=== PATIENT | female | born 1990 | race Caucasian/White ===

== ENCOUNTER 2017-06-09 20:05 | Inpatient (IN) | payer OTHER, SELFPAY ==
[2017-06-09 20:44] VITALS: BMI 26.4
[2017-06-09] MEDS: Lactated Ringers 1,000 ML 50 ML IV (20:45)
[2017-06-09 21:08] LABS: Hematocrit 40.8 % (37-47); Hemoglobin 14.2 g/dl (12.0-15.0); Mean Corp Hgb Conc 34.8 g/gl (32-36); Mean Corpuscular Hgb 32.3 pg (27.0-32.0); Mean Corpuscular Volume 92.9 fL (81-99); Mean Platelet Vol. 10.6 fl (6.2-12.0); Platelet Count 252 K/mm3 (150-450); RBC Distribution Width CV 14.7 % (11.6-14.6); RBC Distribution Width SD 48.2 fl (35.1-43.9); Red Blood Count 4.39 M/mm3 (4.2-5.4); White Blood Count 8.6 K/mm3 (4.4-11.0)
[2017-06-09 21:09] LABS: Scan Indicated on CBC? Y/N NO
[2017-06-09] MEDS: 0.9% Saline Lock 10 ML Syringe IV (21:55)
--- NOTE | 2017-06-09 22:00 | PCM.PN.BLA ---
Progress Note LABOR PROGRESS NOTE Using Nitrous oxide at present. AVSS 100/59 EFM 120-s with avg variability Accels to 150-160s UCs irreg q 1-4 mins with some coupling and spacing noted CX per last RN check: /-2 A/P: 40 5/7 wk spont labor. Category I tracing Continue labor.
[2017-06-10] MEDS: Oxytocin 30 units/NS 500 ml 30 UNITS/500 ML IV.SOLN 334 UNITS IV (01:32)
[2017-06-10] MEDS: Oxytocin 30 units/NS 500 ml 30 UNITS/500 ML IV.SOLN 167 UNITS IV (02:04)
--- NOTE | 2017-06-10 02:40 | OP.PCM_ITS ---
Vaginal Delivery Maternal Presentation: Active Labor 40 5/7 wk labor Amniotic Membrane Rupture Type: Artificial Amniotic Fluid Description: Moderate meconium Final LIZZETH: 06/04/17 Gestational age: 40 Weeks and 6 Days [place] doctor who attended delivery (if requested by OB): Jaylyn Phillips Date of Procedure: 06/10/17 Pre-Operative Diagnosis: 40 6/7 wk Post-Operative Diagnosis: same Surgery/ Procedure Performed: Spontaneous Vaginal Delivery Type of Anesthesia: Epidural Description of Procedure: of a cleary male over midline episiotomy with extension. Head delivered ISELA. Nuchal cord x one reduced shoulders delivered easily. Baby vigorous and crying and to maternal abdomen. Delayed cord clamping . Cord clamped x two and cut. Dr. Phillips present for delivery d/t meconium stained fluid. Routine cord blood for typing obtained. Placenta delivered by spont expulsion, expression. 3V cord, normal appearing and intact with trailing membranes PP exam: 4th degree extension noted. and bilateral vaginal sidewall lacerations. Repaired under 1% lidocaine to hemostatic and intact in layers. -- Rectal mucosa repaired with 3-0 chromic. -- Anal spincter repaired with intermittent 2-0 chromic to reapproximate. -- Vaginal lacerations then repaired with 3-0 vicryl. EBL 450 cc Patient and infant tolerated delivery well. To recovery , stable condition. [employer] counts correct: 30 used. 7 suture / needles and syringe with attached needle to sharps container. Presentation: Vertex, ISELA Placental Delivery Description: Spontaneous, Expressed Placenta Disposition: [facility] Cord Vessel Description: 3 Vessels Nuchal Cord Compression: Without compression Cord Entanglement: Around neck x 1, loose Estimated Blood Loss: 450 Infant A gender: Male (1 minute): 8 (5 minute): 9 Episiotomy Description: Midline Laceration: Midline, Perineal Extension/lac, Vaginal Extension/lac, 4th Degree - Bilateral 2nd deg vaginal side wall tears also. Medications given after delivery: IV Pitocin Complications: None
--- NOTE | 2017-06-10 02:40 | PCM.DCVAG ---
Discharge Diet: No Restrictions Discharge Activity: May Shower, May Take a Tub Bath May resume sexual activity in: 4-6 weeks Additional Activity Instructions:: Nothing in the vagina for 4-6 weeks. You may return to work/school in 6 weeks. Additional Dressing/Incision Instructions:: You may take tylenol 1000 mg every 8 hrs as needed, and add EITHER two Aleve or three ibuprofen every 8 hr if needed for pain. Additional Instructions: If you experience any of the following, contact your healthcare provider. Bleeding that soaks a pad every hour for 2 hours Fever 100.4 or higher Unrelieved incision or abdominal pain Swelling, redness, discharge or bleeding from your incision or episiotomy site Your incision begins to separate Problems urinating (including inability to urinate or burning while urinating). Visual changes Severe headache Flu-like symptoms Pain or redness in one of both of your breasts Pain, warmth, tenderness or swelling in your legs, especially the calf area Frequent nausea and vomiting Symptoms of depression or anxiety If you experience any of the following, call 911 or go to the nearest Emergency Room. Chest pain Problems breathing Seizure activity Partial or complete paralysis of a body part, slurred speech, weakness or drooping of the face, or a sudden inability to walk or hold your balance Allergies/Adverse Reactions: Allergies No Known Allergies Allergy (Verified 06/09/17 20:37) Medications to take at Discharge Vit Calc,Iron,Folic [ Vitamins] 1 each PO DAILY 06/09/17 Docusate Sodium [Colace] 100 mg PO BID #30 cap 06/10/17 Polyethylene Glycol 3350 [Miralax] 17 gm PO DAILY #30 packet 06/10/17 Please Follow Up With: Virginia Booth MD - [phone] Primary Care Physician: Care Physician,No Primary [Primary Care Provider] - Proposed Discharge Date: 06/12/17
--- NOTE | 2017-06-10 02:44 | DCINST_ITS ---
Discharge Diet: No Restrictions Discharge Activity: May Shower, May Take a Tub Bath May resume sexual activity in: 4-6 weeks Additional Activity Instructions:: Nothing in the vagina for 4-6 weeks. You may return to work/school in 6 weeks. Additional Dressing/Incision Instructions:: You may take tylenol 1000 mg every 8 hrs as needed, and add EITHER two Aleve or three ibuprofen every 8 hr if needed for pain. Additional Instructions: If you experience any of the following, contact your healthcare provider. * Bleeding that soaks a pad every hour for 2 hours * Fever 100.4 or higher * Unrelieved incision or abdominal pain * Swelling, redness, discharge or bleeding from your incision or episiotomy site * Your incision begins to separate * Problems urinating (including inability to urinate or burning while urinating) . * Visual changes * Severe headache * Flu-like symptoms * Pain or redness in one of both of your breasts * Pain, warmth, tenderness or swelling in your legs, especially the calf area * Frequent nausea and vomiting * Symptoms of depression or anxiety If you experience any of the following, call 911 or go to the nearest Emergency Room. * Chest pain * Problems breathing * Seizure activity * Partial or complete paralysis of a body part, slurred speech, weakness or drooping of the face, or a sudden inability to walk or hold your balance * Allergies/Adverse Reactions: Allergies No Known Allergies Allergy (Verified 06/09/17 20:37) Medications to take at Discharge Vit Calc,Iron,Folic [ Vitamins] 1 each PO DAILY 06/09/17 Docusate Sodium [Colace] 100 mg PO BID #30 cap 06/10/17 Polyethylene Glycol 3350 [Miralax] 17 gm PO DAILY #30 packet 06/10/17 Please Follow Up With: Virginia Booth MD - [phone] Primary Care Physician: Care Physician,No Primary [Primary Care Provider] - Proposed Discharge Date: 06/12/17
--- NOTE | 2017-06-10 04:56 | NURSING ---
when getting pt up to bathroom for first time, dangled at side of bed for several minutes, pt became faint and passed out, RN assisted pt to lying position. staff assist called, pt came to with no interventions needed.
--- NOTE | 2017-06-10 07:58 | PCM.PN.OB ---
Subjective: Day of Delivery with 4th degree laceration Doing well. Has not taken any pain medication yet. Delivered with nitrous only, no epidural. lidocaine for repair. Breast feeding well. States ready to take tylenol. RN states that with attempting to dangle at bedside earlier in am, pt got dizzy/lighteded and nauseated. resolved with rest and CBC just being drawn this AM. Bleeding is moderate - Physical Exam General: Alert, Oriented x3, Cooperative, No apparent distress HEENT: Atraumatic Neck: Supple Abdomen: Soft - Fundus firm NT, inferior to umbilicus Neurological: Cranial nerves II-XII grossly intact Psych/Mental Status: Normal Affect Weight: 76.5 kg Body Mass Index (BMI) 26.4 Intake and Output for Last 24 Hours 06/08/17 06/09/17 06/10/17 23:59 23:59 23:59 Intake Total 980 / 980 334 / 334 Output Total 200 / 200 Balance 780 / 780 334 / 334 Laboratory Tests Past 24 Hrs 06/09/17 06/09/17 06/10/17 20:45 20:45 07:35 WBC 8.6 RBC 4.39 Hgb 14.2 Hct 40.8 MCV 92.9 MCH 32.3 H MCHC 34.8 RDW 14.7 H RDW Differential 48.2 H Plt Count 252 MPV 10.6 Blood Type A NEGATIVE Antibody Screen NEGATIVE Screen Pending Baby's Blood Type Pending Baby's INGA Pending Assessment/Plan Day of delivery. 4th degree laceration, repaired. Stable . Continue routine care. CBC this am.
[2017-06-10 08:00] VITALS: BP 122/74; PULSE 85; RESP 18; TEMP 36.8
--- NOTE | 2017-06-10 08:02 | PN.OBGYN_ITS ---
Subjective: Day of Delivery with 4th degree laceration Doing well. Has not taken any pain medication yet. Delivered with nitrous only , no epidural. lidocaine for repair. Breast feeding well. States ready to take tylenol. RN states that with attempting to dangle at bedside earlier in am, pt got dizzy/lighteded and nauseated. resolved with rest and CBC just being drawn this AM. Bleeding is moderate - Physical Exam General: Alert, Oriented x3, Cooperative, No apparent distress HEENT: Atraumatic Neck: Supple Abdomen: Soft - Fundus firm NT, inferior to umbilicus Neurological: Cranial nerves II-XII grossly intact Psych/Mental Status: Normal Affect Weight: 76.5 kg Body Mass Index (BMI) 26.4 Intake and Output for Last 24 Hours 06/08/17 06/09/17 06/10/17 23:59 23:59 23:59 Intake Total 980 / 980 334 / 334 Output Total 200 / 200 Balance 780 / 780 334 / 334 Laboratory Tests Past 24 Hrs 06/09/17 06/09/17 06/10/17 20:45 20:45 07:35 WBC 8.6 RBC 4.39 Hgb 14.2 Hct 40.8 MCV 92.9 MCH 32.3 H MCHC 34.8 RDW 14.7 H RDW Differential 48.2 H Plt Count 252 MPV 10.6 Blood Type A NEGATIVE Antibody Screen NEGATIVE Screen Pending Baby's Blood Type Pending Baby's INGA Pending Assessment/Plan Day of delivery. 4th degree laceration, repaired. Stable . Continue routine care. CBC this am.
--- NOTE | 2017-06-10 08:54 | NURSING ---
moderate edema noted of labia majora and minora. Ice reapplied and ivana care given. will start antiinflammatories after breakfast.
[2017-06-10] MEDS: Senna/Docusate Sodium 1 Tablet PO (10:18)
[2017-06-10] MEDS: Ibuprofen 600 MG Tablet PO ×2 (10:19→17:42)
[2017-06-10] MEDS: Polyethylene Glycol 3350 17 GM PACKET PO (10:21)
[2017-06-10] MEDS: Magnesium Hydroxide 30 ML UDC PO ×2 (12:40→21:54)
[2017-06-10 12:50] VITALS: BP 115/76; PULSE 96; RESP 18; TEMP 36.9
--- NOTE | 2017-06-10 12:51 | NURSING ---
labial edema slightly decreased. Ice packs maintained
[2017-06-10 15:34] VITALS: BP 116/79; PULSE 108; RESP 14; TEMP 37; O2SAT 99
[2017-06-10] MEDS: Acetaminophen 500 MG Tablet 1000 MG PO (17:42)
[2017-06-10 19:30] VITALS: BP 99/58; PULSE 82; RESP 18; TEMP 37; O2SAT 98
[2017-06-11 00:25] VITALS: BP 103/59; PULSE 72; RESP 16; TEMP 36.7; O2SAT 98
[2017-06-11 03:00] VITALS: BP 103/69; PULSE 80; RESP 16; TEMP 36.4; O2SAT 99
[2017-06-11 05:10] LABS: Hematocrit 26.1 % (37-47); Hemoglobin 8.7 g/dl (12.0-15.0); Mean Corp Hgb Conc 33.3 g/gl (32-36); Mean Corpuscular Hgb 32.1 pg (27.0-32.0); Mean Corpuscular Volume 96.3 fL (81-99); Platelet Count 181 K/mm3 (150-450); RBC Distribution Width CV 14.6 % (11.6-14.6); RBC Distribution Width SD 48.2 fl (35.1-43.9); Red Blood Count 2.71 M/mm3 (4.2-5.4); White Blood Count 8.6 K/mm3 (4.4-11.0)
[2017-06-11 05:14] LABS: Scan Indicated on CBC? Y/N NO
--- NOTE | 2017-06-11 07:48 | PCM.PN.OB ---
Subjective: She is sore, but doing well. No issues overnight. Denies further lightheadedness or dizziness. She is nursing. Objective: AVSS - Physical Exam General: Alert, Oriented x3, Cooperative, No apparent distress HEENT: Atraumatic, Normocephalic Lungs: Normal air movement Cardiovascular: Regular rate, Regular Rhythm Abdomen: Soft, Non Tender, Non-Distended, - - Fundus firm and nontender, perineum intact, lochia moderate Extremities: No edema, No Calf Tenderness Neurological: Neuro grossly intact Psych/Mental Status: Normal Affect, Appropriate, Alert and oriented to time, place, person, mood and affect Vital Signs Temp Pulse Resp BP Pulse Ox 97.5 F L 80 16 103/69 99 06/11/17 03:00 06/11/17 03:00 06/11/17 03:00 06/11/17 03:00 06/11/17 03:00 Oxygen Delivery Method Room Air Weight: 76.5 kg Body Mass Index (BMI) 26.4 Intake and Output for Last 24 Hours 06/09/17 06/10/17 06/11/17 23:59 23:59 23:59 Intake Total 980 / 980 334 / 334 Output Total 200 / 200 1700 / 1700 Balance 780 / 780 -1366 / -1366 Laboratory Tests Past 24 Hrs 06/10/17 06/11/17 07:35 04:30 WBC 8.6 RBC 2.71 L Hgb 8.7 L Hct 26.1 L MCV 96.3 MCH 32.1 H MCHC 33.3 RDW 14.6 RDW Differential 48.2 H Plt Count 181 MPV 10.0 Screen NEGATIVE Baby's Blood Type A POSITIVE Baby's INGA NEGATIVE Assessment/Plan 27yo PPD#2 s/p with 4th degree perineal laceration doing well. -Rh negative, infant Rh positive - s/p Rhogam -Routine care -
[2017-06-11 08:00] VITALS: BP 103/67; PULSE 78; RESP 20; TEMP 36.6; O2SAT 97
[2017-06-11] MEDS: Ibuprofen 600 MG Tablet PO ×2 (09:20→19:56)
[2017-06-11] MEDS: Magnesium Hydroxide 30 ML UDC PO ×2 (10:27→21:54)
[2017-06-11] MEDS: Polyethylene Glycol 3350 17 GM PACKET PO (10:27)
[2017-06-11 14:00] VITALS: BP 112/73; PULSE 103; TEMP 36.7; O2SAT 100
[2017-06-11 19:45] VITALS: BP 116/66; PULSE 99; RESP 16; TEMP 37.1; O2SAT 100
[2017-06-12 02:00] VITALS: BP 109/73; PULSE 72; RESP 18; TEMP 36.4; O2SAT 100
--- NOTE | 2017-06-12 07:33 | DCINST_ITS ---
Discharge Diet: No Restrictions Discharge Activity: May Shower, May Take a Tub Bath May resume sexual activity in: 6 weeks Additional Activity Instructions:: Nothing in the vagina for 4-6 weeks. You may return to work/school in 6 weeks. Suture Line Care: Avoid Pulling/Pushing Cleanse incision/area with: Soap & Water Additional Dressing/Incision Instructions:: You may take tylenol 1000 mg every 8 hrs as needed, and add EITHER two Aleve or three ibuprofen every 8 hr if needed for pain. Additional Instructions: If you experience any of the following, contact your healthcare provider. * Bleeding that soaks a pad every hour for 2 hours * Fever 100.4 or higher * Unrelieved incision or abdominal pain * Swelling, redness, discharge or bleeding from your incision or episiotomy site * Your incision begins to separate * Problems urinating (including inability to urinate or burning while urinating) . * Visual changes * Severe headache * Flu-like symptoms * Pain or redness in one of both of your breasts * Pain, warmth, tenderness or swelling in your legs, especially the calf area * Frequent nausea and vomiting * Symptoms of depression or anxiety If you experience any of the following, call 911 or go to the nearest Emergency Room. * Chest pain * Problems breathing * Seizure activity * Partial or complete paralysis of a body part, slurred speech, weakness or drooping of the face, or a sudden inability to walk or hold your balance Allergies/Adverse Reactions: Allergies No Known Allergies Allergy (Verified 06/09/17 20:37) Medications to take at Discharge Vit Calc,Iron,Folic [ Vitamins] 1 each PO DAILY 06/09/17 Docusate Sodium [Colace] 100 mg PO BID #30 cap 06/10/17 Polyethylene Glycol 3350 [Miralax] 17 gm PO DAILY #30 packet 06/10/17 Ferrous Sulfate 325 mg PO DAILY 30 Days #30 tab 06/11/17 The following prescriptions were given: Ferrous Sulfate 325 mg PO DAILY 30 Days #30 tab Polyethylene Glycol 3350 [Miralax] 17 gm PO DAILY #30 packet Docusate Sodium [Colace] 100 mg PO BID #30 cap Orders to be completed after discharge: Electric breast pump Time Frame: 1 Year, Location: None Selected Please Follow Up With: Virginia Booth MD When: 1 week Primary Care Physician: Care Physician,No Primary [Primary Care Provider] - Proposed Discharge Date: 06/12/17
--- NOTE | 2017-06-12 07:36 | DS.PCM_ITS ---
Discharge Date and Diagnosis - Problem List Patient Problems: Active and Suspected Problems Fourth degree laceration of perineum, delivered, current hospitalization (Acute) (spontaneous vaginal delivery) (Acute) Date of Admission: 06/09/17 Date of Discharge: 06/12/17 - Primary Discharge Diagnosis Active and Suspected Problems Fourth degree laceration of perineum, delivered, current hospitalization (Acute) (spontaneous vaginal delivery) (Acute) Hospital Course and Treatment Operations: None Procedures: None Summary of Care Provided: The patient is a 27 year old F admitted in active labor. She had an at 40 6 /7wga complicated by 4th degree perineal lacerations. Her course was unremarkable and she was . Her infant was 8lb 9oz. She received Rhogam . She was discharged to home on day #2. Discharge Diet: No Restrictions Discharge Activity: May Shower, May Take a Tub Bath May resume sexual activity in: 6 weeks Additional Activity Instructions:: Nothing in the vagina for 4-6 weeks. You may return to work/school in 6 weeks. Suture Line Care: Avoid Pulling/Pushing Cleanse incision/area with: Soap & Water Additional Dressing/Incision Instructions:: You may take tylenol 1000 mg every 8 hrs as needed, and add EITHER two Aleve or three ibuprofen every 8 hr if needed for pain. Home Medications: Medications to take at Discharge Vit Calc,Iron,Folic [ Vitamins] 1 each PO DAILY 06/09/17 Docusate Sodium [Colace] 100 mg PO BID #30 cap 06/10/17 Polyethylene Glycol 3350 [Miralax] 17 gm PO DAILY #30 packet 06/10/17 Ferrous Sulfate 325 mg PO DAILY 30 Days #30 tab 06/11/17 Following Prescrptions Were Given to Patient: Ferrous Sulfate 325 mg PO DAILY 30 Days #30 tab Polyethylene Glycol 3350 [Miralax] 17 gm PO DAILY #30 packet Docusate Sodium [Colace] 100 mg PO BID #30 cap Other Amb Orders: Electric breast pump Time Frame: 1 Year, Location: None Selected Primary Care Physician: Care Physician,No Primary [Primary Care Provider] - Please Follow Up With: Virginia Booth MD Meaningful Use Info Meaningful Use Diagnoses (Choose all that apply): None applicable
--- NOTE | 2017-06-12 07:43 | PCM.PN.OB ---
Patient Problems: Active and Suspected Problems Fourth degree laceration of perineum, delivered, current hospitalization (Acute) (spontaneous vaginal delivery) (Acute) Subjective: Relates stool was too soft due to stool softener and had difficulty making it to bathroom. Her pain is minimal. She feels well and continues nursing. Her milk has not yet come in. Her lochia is moderate. Objective: AVSS - Physical Exam General: Alert, Oriented x3, Cooperative, No apparent distress HEENT: Atraumatic, Normocephalic Lungs: Normal air movement Cardiovascular: Regular rate, Regular Rhythm Abdomen: Soft, Non Tender, Non-Distended, - - Fundus firm and nontender Extremities: No edema, No Calf Tenderness Neurological: Neuro grossly intact Psych/Mental Status: Normal Affect, Appropriate, Alert and oriented to time, place, person, mood and affect Vital Signs Temp Pulse Resp BP Pulse Ox 97.5 F L 72 18 109/73 100 06/12/17 02:00 06/12/17 02:00 06/12/17 02:00 06/12/17 02:00 06/12/17 02:00 Oxygen Delivery Method Room Air Weight: 76.5 kg Body Mass Index (BMI) 26.4 Intake and Output for Last 24 Hours 06/10/17 06/11/17 06/12/17 23:59 23:59 23:59 Intake Total 334 / 334 Output Total 1700 / 1700 Balance -1366 / -1366 Assessment/Plan Active and Suspected Problems Fourth degree laceration of perineum, delivered, current hospitalization (Acute) (spontaneous vaginal delivery) (Acute) 27yo PPD#2 s/p with 4th degree perineal laceration doing well. -Rh negative, Rh positive - s/p Rhogam -Routine care -
[2017-06-12 08:08] VITALS: BP 124/80; PULSE 88; RESP 16; TEMP 36.7; O2SAT 100
[2017-06-12] MEDS: Ibuprofen 600 MG Tablet PO (09:05)
[2017-06-12 14:23] VITALS: BP 120/80; PULSE 86; RESP 16; TEMP 36.8; O2SAT 99
== END 2017-06-12 15:00 | disposition home or self-care (01) | DRG 775 ==
PROVIDERS: Admitting Provider Obstetrics & Gynecology; Visit Provider Obstetrics & Gynecology
DX: O70.3 Fourth degree perineal laceration during delivery (principal); O77.0 Labor and delivery complicated by meconium in amniotic fluid; O69.81X0 Labor and delivery complicated by cord around neck, without compression, not applicable or unspecified; Z37.0 Single live birth; Z3A.40 40 weeks gestation of pregnancy
CPT/HCPCS: 59025; 59050; 85027; 85461; 86850; 86900; 90384; 99218; J7120; A4216; G0378; J2790

== ENCOUNTER → 2017-07-27 16:40 | Outpatient (CLI) | payer OTHER, SELFPAY ==
[2017-07-30 16:03] LABS: HPV Reflexed? NOT INDICATED
== END ==
PROVIDERS: Visit Provider Obstetrics & Gynecology
DX: Z12.4 Encounter for screening for malignant neoplasm of cervix (principal)
CPT/HCPCS: 88175; G0145

== ENCOUNTER → 2018-05-05 16:46 | Outpatient (CLI) | payer OTHER, SELFPAY ==
--- OUTSIDE RECORDS SUMMARY | 2018-07-01 02:53 | XMS RPT_ITS ---
:1990 Author Organization OHIP Support Name Relationship Address Phone SIMONA SOSA Unavailable [address] + [place] [address] SOSAMATTYSIMONA Unavailable [address] [place] [address] NOT GIVEN Unavailable SCHOOL Unavailable KATHRYN SOSA Unavailable [address] + [place] [address] [facility] Unavailable [address] [facility] [address] + [place] [address] MATTY SSOASHUA Unavailable [address] + [place] [address] SOSA SIMONA Unavailable [address] [place] [address] NOT GIVEN Unavailable SCHOOL Unavailable KATHRYN SOSAUA Unavailable [address] + [place] [address] SOSA, SIMONA Unavailable [address] [place] [address] NOT GIVEN Unavailable SCHOOL Unavailable KATHRYN SOSAUA Unavailable [address] + [place] [address] SOSA SIMONA Unavailable [address] [place] [address] NOT GIVEN Unavailable SCHOOL Unavailable MATTY SOSASHUA Unavailable [address] + [place] [address] SOSA SIMONA Unavailable [address] [place] [address] NOT GIVEN Unavailable SCHOOL Unavailable SOSA SIMONA Unavailable [address] + [place] [address] SOSA SIMONA Unavailable [address] [place] [address] NOT GIVEN Unavailable SCHOOL Unavailable SIMONA SOSA Unavailable [address] + [place] [address] SIMONA SOSA Unavailable [address] [place] [address] NOT GIVEN Unavailable SCHOOL Unavailable SIMONA SOSA Unavailable [address] + [place] [address] SIMONA SOSA Unavailable [address] [place] [address] NOT GIVEN Unavailable SCHOOL Unavailable KATHRYN SOSA Unavailable [address] + [place] [address] [facility] Unavailable [address] + [place] [address] KATHRYN SOSA Unavailable [address] + [place] [address] [facility] Unavailable [address] + [place] [address] KATHRYN SOSA Unavailable [address] + [place] [address] [facility] Unavailable [address] + [place] [address] Care Team Providers Name Role Phone NO, DOCTOR ON Consulting Unavailable KEITH MARIA Primary Care Unavailable KEITH MARIA Attending Unavailable KEITH MARIA Admitting Unavailable FOOTE, PANCHO Admitting Unavailable FOOTE, PANCHO Attending Unavailable FOOTE, PANCHO Primary Care Unavailable NO, DOCTOR ON Consulting Unavailable FOOTE, PANCHO Admitting Unavailable FOOTE, PANCHO Attending Unavailable NO, DOCTOR ON Referring Unavailable FOOTE, PANCHO Primary Care Unavailable NO, DOCTOR ON Consulting Unavailable FOOTE, PANCHO Admitting Unavailable FOOTE, PANCHO Attending Unavailable FOOTE, PANCHO Primary Care Unavailable NO, DOCTOR ON Consulting Unavailable SOSA, KEVIN T Consulting Unavailable SOSA, KEVIN T Admitting Unavailable SOSA, KEVIN T Attending Unavailable SOSA, KEVIN T Primary Care Unavailable PROVIDER, UNKNOWN Consulting Unavailable PROVIDER, UNKNOWN Consulting Unavailable PROVIDER, UNKNOWN Consulting Unavailable SOSA, KEVIN T Admitting Unavailable SOSA, KEVIN T Attending Unavailable SOSA, KEVNI T Primary Care Unavailable SOSA, KEVIN T Consulting Unavailable PROVIDER, UNKNOWN Consulting Unavailable PROVIDER, UNKNOWN Consulting Unavailable PROVIDER, UNKNOWN Consulting Unavailable SOSA, KEVIN T Admitting Unavailable SOSA, KEVIN T Attending Unavailable SOSA, KEVIN T Primary Care Unavailable SOSA, KEVIN T Consulting Unavailable PROVIDER, UNKNOWN Consulting Unavailable PROVIDER, UNKNOWN Consulting Unavailable PROVIDER, UNKNOWN Consulting Unavailable DANIELLE CARMONAER Admitting Unavailable WARMARYANN, DANIELLEER Attending Unavailable WARTMANN, CHRISTOPHER Primary Care Unavailable SOSA, KEVIN T Consulting Unavailable PROVIDER, UNKNOWN Consulting Unavailable PROVIDER, UNKNOWN Consulting Unavailable PROVIDER, UNKNOWN Consulting Unavailable Leobardo, Summer Admitting Unavailable Jules-Antonio, Summer Attending Unavailable Primay Care Physicia, No Primary Care Unavailable Benekos Agatha Admitting Unavailable Agatha Caro Attending Unavailable Primay Care Physicia, No Primary Care Unavailable Jules-Antonio, Summer Attending Unavailable Primay Care Physicia, No Primary Care Unavailable Danielle Carmonae Attending Unavailable Arthur Carmona Referring Unavailable Primay Care Physicia, No Primary Care Unavailable PROBLEMS PROBLEMS DATE TYPE CONDITION / CODE ATTENDING STATUS SOURCE 07/27/2017 Unknown Z12.4 - Encounter Owen Booth for screening for [facility] neoplasm of Repository cervix / Z12.4(ICD-10) 06/12/2017 Unknown O70.3 - Fourth Agatha Caro Active [place] degree perineal Community laceration during Hospital delivery / Repository O70.3(ICD-10) 06/12/2017 Unknown D64.9 - Anemia, Agatha Caro Active [place] unspecified / Community D64.9(ICD-10) Hospital Repository PROCEDURES PROCEDURES No Procedure Records FoundRESULTS RESULTS CBC Collected: 05/22/2018 Status: F Source: LUIGI ABARCA 9:22 AM [facility] REPOSITORY TYPE CODE TESTS RESULT OUT OF RANGE REFERENCE UNITS LAB CBC(LOINC) CBC Result Comment: CBC-COMPLETE BLOOD COUNT LAB WBC(LOINC) 4.5 - 10.8 x 10EE3/UL WBC Low 3.8 LAB RBC(LOINC) 4.10 - x 10EE6/UL 5.30 RBC 4.91 LAB HEMOGLOBIN(LOINC) 12.0 - g/dl 16.0 HEMOGLOBIN 15.2 LAB HEMATOCRIT(LOINC) 34.0 - % 46.0 HEMATOCRIT 44.0 LAB MCV(LOINC) 80 - 99 fl MCV 90 LAB MCH(LOINC) 27 - 33 pg MCH 31 LAB MCHC(LOINC) 32 - 36 X10 3 MCHC 35 LAB RDW/CV(LOINC) 12.0 - % 15.6 RDW/CV 13.7 LAB PLATELET(LOINC) 150 - 450 x10EE3/UL PLATELET 219 LAB MPV(LOINC) 6.6 - 10.5 fl MPV 8.9 Result Comment: AUTOMATED DIFFERENTIAL LAB NEUT %(LOINC) 46.0 - 76.0 % NEUT % 57.0 LAB LYMPH %(LOINC) 20.0 - 45.0 % LYMPH % 29.8 LAB MONOS %(LOINC) 0.0 - 10.0 % MONOS % 9.7 LAB EO %(LOINC) 0.0 - 7.0 % EO % 2.6 LAB BASO %(LOINC) 0.0 - 2.0 % BASO % 0.9 LAB Lymph #(LOINC) 0.80 - 2.80 x10EE3/U L Lymph # 1.10 LAB Neut #(LOINC) 1.50 - 7.10 x10EE3/U L Neut # 2.20 LAB Vermilion #(LOINC) 0.20 - 1.00 x10EE3/U L Vermilion # 0.40 LAB EO #(LOINC) 0.00 - 0.50 x10EE3/U L EO # 0.10 LAB Baso #(LOINC) 0.00 - 0.10 x10EE3/U L Baso # 0.00 LAB MANUAL DIFF(LOINC) MANUAL DIFF N/A LAB MORPHOLOGY(LOINC ) MORPHOLOGY N/A Result Comment: {CD] Performed By: #### [id number] #### [facility],[address] [place] [address] BMP WITH EGFR Collected: 05/22/2018 Status: F Source: [facility] 9:22 AM [facility] REPOSITORY TYPE CODE TESTS RESULT OUT OF RANGE REFERENCE UNITS LAB BMP with eGFR(LOINC) BMP with eGFR Result Comment: BASIC METABOLIC PANEL LAB SODIUM(LOINC) 136 - 145 mmol/l SODIUM 141 LAB POTASSIUM(LOINC) 3.5 - 5.1 mmol/L POTASSIUM 4.2 LAB CHLORIDE(LOINC) 98 - 107 mmol/L CHLORIDE 106 LAB CO2(LOINC) 21.0 - mmol/L 31.0 CO2 28.8 LAB GLUCOSE(LOINC) 74 - 106 mg/dl GLUCOSE Low 59 LAB BUN(LOINC) 6 - 20 mg/dl BUN 11 LAB CREATININE(LOINC) 0.6 - 1.2 mg/dl CREATININE 0.6 LAB CALCIUM(LOINC) 8.6 - mg/dl 10.2 CALCIUM 9.1 LAB ANION GAP(LOINC) 10 - 20 mmol/L ANION GAP 10 LAB AGE(LOINC) years AGE 28 LAB eGFR(LOINC) 60 - 999 ML/MINUTE eGFR >60 LAB eGFR(AA)(LOINC) 60 - 999 ML/MINUTE eGFR(AA) >60 Result Comment: ACCORDING TO THE NATIONAL KIDNEY DISEASE EDUCATION PROGRAM(NKDE), A NORMAL eGFR IS A VALUE GREATER THAN OR EQUAL TO 60 ML/MIN/1.73 SQ METERS. CHRONIC KIDNEY DISEASE: <60mL/MIN/1.73 SQ METERS KIDNEY FAILURE: <15mL/MIN/1.73 SQ METERS THIS TEST SHOULD ONLY BE USED FOR PATIENTS 18 YEARS OF AGE AND OLDER. Performed By: #### [id number] #### [facility],[address] [place] [address] Observed: 05/05/2018 Status: F Source: [place] CULTURE, THROAT 2:55 PM [facility] REPOSITORY Culture, Throat Mixed normal throat nazario. No Haemophilus, Streptococcus pneumoniae, beta-hemolytic Streptococcus or Staphylococcus aureus isolated. Performed By: #### [id number] #### [facility] [address] [place] [address], [address] [address] CHEST (PE PROTOCOL) Observed: 04/26/2018 Status: F Source: LUIGI TEVIN 9:12 AM [place] [address] Patient: JOSSELIN SOSA Phone#: : 1990 Age: 28 Gender: F Pt. Type: Out Account: [id number] Location: Ordering: KEVIN SOSA Exam Date: 04/26/2018/8:48 Family Phys: Charge Code: [id number] Physician: [place] Order #: [id number] DLP Dose#: PROCEDURE: CT CHEST WITH CONTRAST FOR PE COMPARISON: None. INDICATIONS: Shortness of breath TECHNIQUE: After obtaining the patient's consent, CT images were obtained with non-ionic intravenous contrast material. Multi-planar images were created to optimize visualization of vascular anatomy with MPR/MIPS and 3D imaging. All CT scans at this facility use dose modulation, iterative reconstruction, and/or weight based dosing when appropriate to reduce radiation dose to as low as reasonably achievable. IV CONTRAST: Omnipaque 350,59ml TOTAL DOSE: 2.5 CTDIvol(mGy) FINDINGS: VASCULATURE: Normal. No visible pulmonary arterial thrombus or attenuation. AORTA: Normal. No aneurysm or dissection. LUNGS: Normal. No visible pulmonary disease. KATHY: Normal. No mass or adenopathy. MEDIASTINUM: Normal. No mass or adenopathy. CARDIAC: Normal. No enlargement, pericardial thickening, or significant calcification. PLEURA: Normal. No mass or effusion. CHEST WALL: Normal. No mass or axillary adenopathy. LIMITED ABDOMEN: There is an accessory right renal artery. BONES: Normal. No bony lesion or fracture. OTHER: Small nodules are seen throughout the thyroid gland. CONCLUSION: 1. No pulmonary embolism. No pulmonary parenchymal abnormality. Continued Report - Page 2 of 2 Patient: JOSSELIN SOSA Phone#: : 1990 Age: 28 Gender: F Pt. Type: Out Account: [id number] Location: Ordering: KEVIN SOSA Exam Date: 04/26/2018/8:48 Family Phys: Charge Code: [id number] Physician: [place] Order #: [id number] DLP Dose#: 2. Small thyroid nodules. Dictated by: Madina Mckee MD on 04/26/2018 at 9:47 Approved by: Madina Mckee MD on 04/26/2018 at 12:49 CT KUB (KIDNEY STONE Observed: 04/21/2018 Status: F Source: [facility] PROTOCOL) 3:16 PM [place] [address] Patient: JOSSELIN SOSA Phone#: : 1990 Age: 28 Gender: F Pt. Type: Out Account: [id number] Location: Ordering: KEVIN SOSA Exam Date: 04/21/2018/15:05 Family Phys: Charge Code: [id number] Physician: [place] Order #: [id number] DLP Dose#: 6.1 mGy PROCEDURE: CT ABDOMEN AND PELVIS WITHOUT CONTRAST COMPARISON: None. INDICATIONS: Flank pain. TECHNIQUE: After obtaining the patient's consent, CT images of the abdomen and pelvis were created without non-ionic intravenous contrast material. All CT scans at this facility use dose modulation, iterative reconstruction, and/or weight based dosing when appropriate to reduce radiation dose to as low as reasonably achievable. IV CONTRAST: No IV contrast used,0ml TOTAL DOSE: 6.1 CTDIvol(mGy) FINDINGS: KIDNEYS: Normal. No mass, obstruction, or calcification. ADRENALS: Normal. No mass or enlargement. URINARY BLADDER: Normal. No visible focal wall thickening, lesion, or calculus. LIVER: Normal. No enlargement, atrophy, abnormal density, or significant focal lesion. BILIARY: The gallbladder is absent. Surgical sutures present the gallbladder fossa. PANCREAS: Normal. No lesion, fluid collection, ductal dilatation, or atrophy. SPLEEN: Normal. No enlargement or focal lesion. AORTA/VASCULAR: Normal. No aneurysm. RETROPERITONEUM: Normal. No mass or adenopathy. BOWEL/MESENTERY: There is moderate proximal stool retention. The stomach is distended. Correlate with recent meal. ABDOMINAL WALL: Normal. No mass or hernia. PELVIC NODES: Normal. No adenopathy. PELVIC ORGANS: Normal. No visible mass. Pelvic organs appropriate for patient age. Continued Report - Page 2 of 2 Patient: ARCELIA SOSABEKAY Wharton Phone#: : 1990 Age: 28 Gender: F Pt. Type: Out Account: [id number] Location: Ordering: KEVIN SOSA Exam Date: 04/21/2018/15:05 Family Phys: Charge Code: [id number] Physician: [place] Order #: [id number] DLP Dose#: 6.1 mGy BONES: The L5-S1 disc space is narrowed. There is no evidence of subluxation. Broad-based disc bulging is present at the L4-5 level. There is mild narrowing of the disc space. There is mild right foraminal narrowing LUNG BASES: Normal. No visible pulmonary or pleural disease. OTHER: Negative. CONCLUSION: 1. There is no evidence of acute abdominal abnormality. There is disc bulging at the L4-5 level. There is mild right foraminal narrowing. Dictated by: Aditi Mckeon MD on 04/21/2018 at 15:32 Approved by: Aditi Mckeon MD on 04/21/2018 at 15:32 CHEST 2 VIEWS Observed: 04/09/2018 Status: F Source: LUIGI ABARCA 4:41 PM [place] [address] Patient: JOSSELIN SOSA. Phone#: : 1990 Age: 27 Gender: F Pt. Type: Out Account: [id number] Location: Ordering: FAZAL SOSA Exam Date: 04/09/2018/16:24 Family Phys: KEVIN SOSA Charge Code: [id number] Physician: UMANG AMAYA [place] Order #: [id number] DLP Dose#: PROCEDURE: X-RAY CHEST 2 VIEWS COMPARISON: None. INDICATIONS: Chest pain FINDINGS: LUNGS: Normal. No significant pulmonary parenchymal abnormalities. VASCULATURE: Normal. Unremarkable pulmonary vasculature. CARDIAC: Normal. No cardiac silhouette abnormality or cardiomegaly. MEDIASTINUM: Normal. No visible mass or adenopathy. PLEURA: Normal. No effusion or pleural thickening. BONES: Normal. No fracture or visible bony lesion. OTHER: Negative. CONCLUSION: No acute disease. Dictated by: Madina Mckee MD on 04/09/2018 at 16:54 Approved by: Madina Mckee MD on 04/09/2018 at 16:54 OPERATIVE PROCEDURES Observed: 03/04/2018 Status: F Source: LUIGI ABARCA 9:28 PM [facility] OPERATIVE REPORT NAME ACCOUNT SEX AGE ADMIT DISCHARGE PT MED. RECORD# NUMBER DATE DATE TYPE SHEILA [id number] F 27 02/17/18 02/17/18 2 JOSSELIN Cheek [id number] ROOM: [facility] DATE OF : 1990 DICTATING PHYSICIAN: Pancho Foote DATE OF SURGERY: February 17, 2018 SURGEON: Pancho Foote MD ROTARY SHE[employer] WORKER HELPER: ANESTHESIOLOGIST: Suzie Queen MD ANESTHETIC: PREOPERATIVE DIAGNOSIS: POSTOPERATIVE DIAGNOSIS: Abdominal pain, hiatal hernia, and alkaline bile reflux gastritis. OPERATION PERFORMED: EGD. COMPLICATIONS: ESTIMATED BLOOD LOSS: None. SPECIMENS: None. DISPOSITION: Stable, to recovery. INDICATIONS: Josselin Sosa is a pleasant 27-year-old lady who has had recurrent symptoms of upper abdominal discomfort and GE reflux. DESCRIPTION OF OPERATION: After informed consent, she was brought to endoscopy and placed on a padded gurney in the left lateral decubitus position with adequate padding of pressure points and time-out verification done. She was given sedation per Anesthesia with monitoring throughout. The oropharynx was topically anesthetized with 2% viscous lidocaine. A bite block was placed, and the Olympus [id number]-[id number] flexible endoscope was passed through the bite block and oropharynx into the esophagus. It was carefully advanced, protecting the mucosa. The proximal esophagus is unremarkable. There is no stricture. No worrisome findings. In the distal Page 1 of 2 JOSSELIN SOSA Operative Report esophagus, there is a small hiatal hernia with mild erythema but no ulceration. The GE junction was bypassed. The scope was retroflexed, and the fundus and GE junction viewed from below. Immediately upon entering the gastric body there was bilious material. There was generalized erythema consistent with gastritis. The GE junction appears unremarkable otherwise. The scope was advanced with irrigation and suctioning of the bilious material consistent with bile gastritis. The scope was advanced to the distal gastric body and into the second portion of the duodenum. The scope was then withdrawn with careful rotation, irrigation and suctioning in a back and forth movement as needed. The bulb, pylorus and antrum were carefully viewed. The rest of the gastric body was viewed. There were a few areas in the proximal gastric body which were just slightly irregular consistent with possible early gastric polyp formation, but there are no worrisome findings. No mass. No biopsies were taken. There was no ulcer seen. There is no active bleeding. No angiodysplasia. The scope was withdrawn with decompression with careful irrigation and suctioning, and no other worrisome findings were noted. The patient tolerated the procedure well and was sent to recovery in stable condition. The case will be discussed with the patient and spouse when she is more awake in the preoperative area. Dictated By: Pancho Foote MD 02/17/18 15:03 JOB #: [id number] Transcribed By: olegario 02/18/18 14:30 Electronically signed by: E-Sign Dr. Pancho Foote MD 03/04/18 21:27 Page 2 of 2 JOSSELIN SOSA Operative Report URINE Collected: 02/17/2018 Status: F Source: [facility] 12:42 PM [facility] ER TYPE CODE TESTS RESULT OUT OF REFERENCE UNITS RANGE LAB NEGATIVE UR(LOINC) UR NEGATIVE LAB INTERNAL QC(LOINC) INTERNAL QC PASS LAB EXTERNAL QC DONE?(LOINC) EXTERNAL QC YES DONE? Performed By: #### [id number] #### [facility],[address] [place] [address] OPERATIVE PROCEDURES Observed: 01/14/2018 Status: F Source: [facility] 11:17 AM [facility] OPERATIVE REPORT NAME ACCOUNT SEX AGE ADMIT DISCHARGE PT MED. RECORD# NUMBER DATE DATE TYPE SHEILA [id number] F 27 01/11/18 2 JOSSELIN Cheek [id number] ROOM: [facility] DATE OF : 1990 DICTATING PHYSICIAN: Pancho Foote DATE OF SURGERY: January 11, 2018 SURGEON: Pancho Foote MD [employer]ARY [employer] WORKER HELPER: ANA M Oates ANESTHESIOLOGIST: Suzie Queen MD ANESTHETIC: Local anesthesia 0.25% Sensorcaine with epinephrine, a total of 34 mL was used. PREOPERATIVE DIAGNOSIS: POSTOPERATIVE DIAGNOSES: Gallbladder sludge, adhesions, and bilirubin colic. OPERATION PERFORMED: Laparoscopic cholecystectomy, lysis of adhesions. COMPLICATIONS: ESTIMATED BLOOD LOSS: Less than 5 mL. FLUIDS GIVEN: 1600 mL of crystalloid. SPECIMEN: Gallbladder to pathology. DISPOSITION: Stable to recovery. INDICATIONS: Josselin Sosa is a pleasant 27-year-old lady with abdominal pain and a pattern consistent with biliary colic, and she was found to have gallbladder sludge. DESCRIPTION OF OPERATION: After informed consent and intravenous fluids, she was brought to the operating room, placed on the table in the supine position with adequate padding at pressure points. She was given anesthesia, prepped and draped in the usual fashion and timeout and verification done. The abdomen was carefully palpated, demarcated, and then an infraumbilical incision made under direct Page 1 of 2 JOSSELIN SOSA Operative Report visualization, and the Weck-Isaias trocar placed with good visualization and anchored with #1 Vicryl. The abdomen was gently insufflated, the patient rotated to the left and in reverse Trendelenburg. The epigastric and right-sided trocars were placed with good visualization. The trocar sites were all numbed up with 0.25% Sensorcaine with epinephrine. The tip of the gallbladder was viewed. This was elevated superiorly and laterally, and dissection carried down towards the triangle of Calot. There were multiple adhesions to the gallbladder from the omentum and around the bowel. These adhesions were lysed. Eventually the lysis was carried down toward the triangle of Calot, and the cystic artery and its branches were dissected free, doubly cross-clamped proximally with Weck polymer clips and divided distally with Harmonic scalpel. The cystic duct was skeletonized, and care taken not to tent the common bile duct. Cystic duct was doubly cross-clamped proximally and distally with Weck polymer clips and then sharply transected, and then this dissection was carried out laterally posterior to the gallbladder itself very gently traction and countertraction, and then the gallbladder was dissected away from the liver bed and oozing points coagulated. Prior to division of the last peritoneal reflection, the liver bed and the triangle of Calot were carefully inspected, and there was good hemostasis. The gallbladder was placed in an Endobag, removed through the epigastric opening, and the trocar repositioning. The liver bed and the triangle of Calot were again checked for good hemostasis. The patient was placed in Trendelenburg and rotated to the right and the irrigant suctioned and removed. Then the table was leveled. The liver bed again inspected for good hemostasis. The trocars were removed under direct visualization. The epigastric and infraumbilical fascial edges were nicely approximated with #1 Vicryl and the deeper layers also approximated with inverted interrupted #1 Vicryl, then the skin edges were brought in nice approximation with inverted interrupted 4-0 PDS through subcutaneous and subcuticular layers. Benzoin, Steri-Strips, and sterile dressings were placed. The patient tolerated the procedure well, was awakened, and will be sent to recovery room in good condition. The case will be discussed with the patient and spouse when she is more awake. Dictated By: Pancho Foote MD 01/11/18 16:12 JOB #: [id number] Transcribed By: am 01/11/18 16:27 Electronically signed by: E-Sign Dr. Pancho Foote MD 01/14/18 11:17 Page 2 of 2 JOSSELIN SOSA Operative Report URINE Collected: 01/11/2018 Status: F Source: [facility] 11:00 AM [facility] ER TYPE CODE TESTS RESULT OUT OF REFERENCE UNITS RANGE LAB NEGATIVE UR(LOINC) UR NEGATIVE LAB INTERNAL QC(LOINC) INTERNAL QC PASS LAB EXTERNAL QC DONE?(LOINC) EXTERNAL QC YES DONE? Performed By: #### [id number] #### [facility],[address] [place] [address] [place] HIDA SCAN Observed: 12/16/2017 Status: F Source: [facility] 11:00 [place] [address] Patient: JOSSELIN SOSA Phone#: : 1990 Age: 27 Gender: F Pt. Type: Out Account: [id number] Location: Ordering: PANCHO FOOTE Exam Date: 12/16/2017/7:42 Family Phys: NO DOCTOR Charge Code: [id number] Physician: [place] Order #: [id number] DLP Dose#: PROCEDURE: HIDA SCAN COMPARISON: None. INDICATIONS: RUQ pain TECHNIQUE: Informed consent was obtained. A routine radionuclide hepatobiliary scan was performed after intravenous injection of 8.4 mCi Tc Choletec with sequential acquisitions every 5 minutes for one hour. Then, a repeat hepatobiliary scan with gallbladder ejection fraction analysis was performed after a 30-minute intravenous infusion of 1.2 mcg cholecystokinin by calibrated pump. Biliary imaging was again performed with sequential imaging performed every 30 seconds for 30 minutes, followed by computer quantitative ejection fraction analysis. PHARMACEUTICAL(S): Tc-99m TMI derivative (see dose listed above). Cholecystokinin (Kinevac ) (see dose listed above). FINDINGS: BILIARY DUCTS: Normal radioisotopic biliary excretion. GALLBLADDER: Normal with no evidence of cystic duct obstruction. INTESTINE: Normal with no evidence of common biliary ductal obstruction. EJECTION FRACTION: 35 % at 30 minutes. (Normal EF > 35%). OTHER: Negative. CONCLUSION: 1. Ejection fraction is borderline normal at 35%. Patient did not experience clinical symptoms with administration of CCK. Dictated by: Aditi Mckeon MD on 12/16/2017 at 16:17 Approved by: Aditi Mckeon MD on 12/16/2017 at 16:17 RUQ (GB/PANCREAS) Observed: 12/16/2017 Status: F [facility]29 [place] [address] Patient: BOB SOSAZAEMMANUEL Cheek. Phone#: : 1990 Age: 27 Gender: F Pt. Type: Out Account: [id number] Location: Ordering: [facility] Exam Date: 12/16/2017/8:00 Family Phys: NO DOCTOR Charge Code: [id number] Physician: [place] Order #: [id number] DLP Dose#: PROCEDURE: RUQ (GB) ULTRASOUND COMPARISON: [facility], RUQ (GB), 04/30/2012, 9:22. INDICATIONS: Abdominal pain FINDINGS: LIVER: Normal. Normal size and echotexture. No significant masses. BILIARY: There is a small amount sludge layering in the gallbladder. The common bile duct measures 0.3 cm. The gallbladder wall measures 0.2 cm. PANCREAS: Limited visualization of the pancreas, visualized portions unremarkable RIGHT KIDNEY: Normal renal parenchymal echogenicity. No hydronephrosis. OTHER: Negative. CONCLUSION: 1. Small amount of gallbladder sludge. DICTATED BY: MADNIA MCKEE MD ON 12/16/2017 AT 8:39 APPROVED BY: MADINA MCKEE MD ON 12/16/2017 AT 8:39 OPERATIVE PROCEDURES Observed: 08/31/2017 Status: F Source: LUIGI TANNERSHEILA 8:13 AM [facility] OPERATIVE REPORT NAME ACCOUNT SEX AGE ADMIT DISCHARGE TYPE MED. RECORD# NUMBER DATE DATE SHEILA [id number] F 27 08/27/17 2 JOSSELIN Cheek [id number] ROOM: [facility] DATE OF : 1990 DICTATING PHYSICIAN : Keith Maria DATE OF SURGERY: August 27, 2017 SURGEON: Keith Maria MD ROTARY SHEAR WORKER HELPER: ANESTHESIOLOGIST: ANESTHETIC: MAC with 1% lidocaine and 0.5% Marcaine without epinephrine locally. PREOPERATIVE DIAGNOSIS: Left gluteal abscess. POSTOPERATIVE DIAGNOSIS: Left gluteal abscess. OPERATION PERFORMED: Incision and drainage. COMPLICATIONS: None. ESTIMATED BLOOD LOSS: 1 mL DRAINS: None. SPECIMEN: Wound culture. SIGNIFICANT FINDINGS: Scant amount of fluid upon incision of abscess cavity. All loculations were broken. DISPOSITION: Home. Diet: Regular. Activity: Regular. Medications: The patient was instructed to finish her course of Bactrim that she received from her PCP. In addition, she was given Percocet as needed for pain. It should be noted that the patient was instructed that it was okay to breastfeed while taking pain medication. SPECIAL INSTRUCTIONS: The patient was instructed to pack her wound with normal saline-dampened iodoform gauze b.i.d. Work: The patient was given an absence from work on August 28, 2017, and was written to go back to work on Thursday, August 31, 2017, with no restrictions. Follow-up: The patient will follow up with Dr. Maria as Page 1 of 2 JOSSELIN SOSA Operative Report needed. DESCRIPTION OF OPERATION: Following the initiation of MAC anesthesia, the patient was placed in the prone jackknife position. The patient's gluteal area was sterilely prepped and draped in the usual manner, and 1% lidocaine and 0.5% Marcaine without epinephrine were infused into the skin overlying the abscess. An 11 blade scalpel was then used to create approximately a 1 cm linear incision. Upon making the incision, there was a scant amount of purulent fluid that was expressed. This fluid was cultured. A finger was inserted through the defect, and all loculations were freed. The cavity was then irrigated with copious amounts of normal saline. The wound was then packed tightly with iodoform gauze. All needle, instrument and sponge counts were correct x2. The wound was appropriately dressed and bandaged. The patient was then awakened and returned to the supine position and taken to the PACU in good and stable condition. D: Keith Maria MD TD: 08/27/17 17:27 JOB #: [id number] Transcribed by: [email or web address] Electronically signed by: E-SIGN DR. MARIA 08/31/17 08:10 Page 2 of 2 SOSAJOSSELIN Operative Report HISTORY AND PHYSICAL Observed: 08/31/2017 Status: F Source: LUIGIALEJANDRO ABARCA EXAM 8:13 AM [facility] HISTORY & PHYSICAL NAME ACCOUNT SEX AGE ADMIT DISCHARGE TYPE MED. RECORD# NUMBER DATE DATE SHEILA [id number] F 27 08/27/17 Gogo JOSSELIN Cheek [id number] ROOM: [facility] DATE OF : [birth year] DICTATING PHYSICIAN: Keith Maria CHIEF COMPLAINT: Gluteal pain. HISTORY OF PRESENT ILLNESS: Mrs. Sosa is a 27-year-old female who presents with five to six days of increasing pain in her superior gluteal cleft. In addition, she has noticed a bulge that she suspects is an abscess. She has not witnessed any spontaneous drainage and denies any signs or symptoms of systemic illness. PAST MEDICAL HISTORY: None. PAST SURGICAL HISTORY: None. MEDICATIONS: None. ALLERGIES: No known drug allergies. SOCIAL HISTORY: She is . She recently had a baby. She does not drink, smoke or use illicit substances. REVIEW OF SYSTEMS: Ten-system review of systems is negative except as above. PHYSICAL EXAMINATION GENERAL APPEARANCE: In general, she is alert, oriented, appropriate and in no acute distress. VITAL SIGNS: She is afebrile. Vital signs are stable and within normal limits. LUNGS: Lungs are clear to auscultation bilaterally. HEART: Regular rate and rhythm. ABDOMEN: Soft, nontender and nondistended. On external examination of the gluteus, she is noted to have approximately a 2.5 cm area of erythema, induration, and central fluctuance that is exquisitely tender. No spontaneous drainage. The lesion is an appreciable significant distance from the anus. IMPRESSION: This is a 27-year-old female with a gluteal abscess versus a pilonidal cyst. Page 1 of 2 SHEILA JOSSELIN Adia History & Physical PLAN: We will give her a dose of vancomycin and then proceed to the operative arena for incision and drainage. The patient will then be instructed on wound care following the procedure. D: Keith Maria MD TD: 08/27/17 16:31 JOB #: [id number] Transcribed by: olegario Electronically signed by: MERISSA MARIA 08/31/17 08:10 Update to H&P: [ ] No changes: I have examined the patient and reviewed the H&P and there are no changes. [ ] As previously dictated with the following changes: PHYSICIAN SIGNATURE: TIME: DATE: Page 2 of 2 JOSSELIN SOSA History & Physical Observed: 08/27/2017 Status: F Source: LUIGI ABARCA GRAM STAIN STAT 4:33 PM [facility] REPOSITORY GRAM STAIN STAT GRAM STAIN SOURCE _L_GLUTEAL_ABSCE_ 08/27/17.1716.JLN. AMOUNT DESCRIPTION _NO_ORGANSIMS_SEEN 08/27/17.1716.JLN. CALLED TO/BY DEB/LOU [id number] Performed By: #### [id number] #### [facility] [place] [address] 45169 Observed: 08/27/2017 Status: F Source: LUIGI ABARCA GRAM STAIN STAT 4:33 [facility] GRAM STAIN STAT GRAM STAIN SOURCE _L_GLUTEAL_ABSCE_ 08/27/17.1717.LOU. AMOUNT DESCRIPTION _NO_ORGANISMS_SEEN 08/27/17.1717.LOU. CALLED TO/BY DEB/LOU [id number] Performed By: #### [id number] #### [facility],[address] [place] [address] 23825 Observed: 08/27/2017 Status: F Source: LUIGI ABARCA CULTURE BODY FLUID 4:33 PM [facility] REPOSITORY CULTURE BODY FLUID _BODY FLUID CULTURE_ M I C R O B I O L O G Y R E P O R T FINAL Antimicrobial Susceptibility and Organism Identification Report Specimen Number : [id number] Requested : 08/27/17 Specimen Source : BODY FLUID Collected : 08/27/17 16:33 [facility] : AMBULATORY Received : 08/27/17 16:33 Requesting Physician : yenny mahmood Patient/Specimen Tests and Comments Specimen Comments FINAL REPORT: SCANT GROWTH COAGULASE NEGATIVE STAPH MIXED NAZARIO NO PATHOGENS PRESENT Source - Left Gluteal Abscess Tech : Source : BODY FLUID ID # : [id number] FINAL Report Date : / / : Collected : 08/27/17 16:33 08/30/17.MDS. 08/29/17.MDS. 08/30/17.MDS.COMPLETE Performed By: #### [id number] #### [facility],[address] [place] [address] Observed: 08/27/2017 Status: F Source: [facility] CULTURE BODY FLUID 4:33 [facility] REPOSITORY CULTURE BODY FLUID _BODY FLUID CULTURE_ M I C R O B I O L O G Y R E P O R T FINAL Antimicrobial Susceptibility and Organism Identification Report Specimen Number : [id number] Requested : 08/27/17 Specimen Source : BODY FLUID Collected : 08/27/17 16:33 [facility] : AMBULATORY Received : 08/27/17 16:33 Requesting Physician : yenny mahmood Patient/Specimen Tests and Comments Specimen Comments FINAL REPORT: SCANT GROWTH COAGULASE NEGATIVE STAPH MIXED NAZARIO NO PATHOGENS PRESENT Source - Left Gluteal Abcess Tech : Source : BODY FLUID ID # : [id number] FINAL Report Date : / / : Collected : 08/27/17 16:33 08/30/17.MDS. 08/29/1755.MDS. 08/30/17.MDS.COMPLETE Performed By: #### [id number] #### [facility],[address] [place] [address] HEMOGLOBIN Collected: 08/27/2017 Status: F Source: [facility] 3:49 PM [facility] REPOSITORY TYPE CODE TESTS RESULT OUT OF REFERENCE UNITS RANGE LAB HEMOGLOBIN 12.0 - 16.0 g/dl (LOINC) HEMOGLOBIN 15.7 Result Comment: {HH] Performed By: #### [id number] #### [facility],[address] [place] [address] URINE Collected: 08/27/2017 Status: F Source: [facility] 3:13 PM [facility] REPOSITORY TYPE CODE TESTS RESULT OUT OF REFERENCE UNITS RANGE LAB NEGATIVE UR(LOINC) UR NEGATIVE LAB INTERNAL QC(LOINC) INTERNAL QC PASS LAB EXTERNAL QC DONE?(LOINC) EXTERNAL QC YES DONE? Performed By: #### [id number] #### [facility],[address] [place], [place] [address] PROGRESS Observed: 08/23/2017 Status: COMPLETED Source: [address] 3:13 PM [facility] REPOSITORY HNO ID: [id number] Author: Kymberly (Cynthia) Mirella Service: (none) Author Type: Nurse Practitioner Type: Progress Notes Filed: 08/23/2017 3:25 PM Note Text: Subjective HPI HPI Josselin Sosa is a 27 year old female who presents today for CC of lump at top of tailbone. This started over the past 24 hours. She is also having mild discomfort. Symptoms are worsened by touch She has tried no treatment or medications Risk factors none knwon PMH not significant BP 118/68 Pulse 76 Temp 36.9 ?C (98.5 ?F) (Tympanic) Resp 16 Wt 65.3 kg (144 lb) ALLERGIES No Known Allergies There is no problem list on file for this patient. No family history on file. Social History Marital status: Spouse name: Years of education: Number of children: Social History Main Topics Smoking status: Never Smoker Smokeless status: Never Used Review of Systems Constitutional: Negative for chills, fever and malaise/fatigue. Genitourinary: Negative for dysuria. Musculoskeletal: Negative for joint pain and myalgias. Skin: Negative for rash. Lump on skin above tailbone Painful Neurological: Negative for headaches. Objective Physical Exam Constitutional: She is oriented to person, place, and time and well-developed, well-nourished, and in no distress. No distress. HENT: Head: Normocephalic and atraumatic. Eyes: Conjunctivae and EOM are normal. Pupils are equal, round, and reactive to light. Neck: Normal range of motion. Neck supple. Pulmonary/Chest: Effort normal. Neurological: She is alert and oriented to person, place, and time. Skin: Skin is warm and dry. Psychiatric: Affect normal. Nursing note and vitals reviewed. ASSESSMENT/PLAN: 1. Nodule of buttock - ICD9: 782.2, ICD10: R22.2 Appears to be infected No purulent drainage -Tylenol or Ibuprofen for discomfort -Observe area for any worsening signs of infection: redness, warmth, foul odor, drainage or increase in discomfort or size, need to go to ER for further treatment. -Call your primary care physician's office for a follow up appointment if no improvement. - CEPHALEXIN 500 MG CAPSULE Diagnosis and treatment plan were discussed and questions were answered to the patient's satisfaction. Pt acknowledged understanding of concepts and follow up plan. Specific signs and symptoms that would indicate the need for higher level of care were discussed in detail warranting prompt ER evaluation. Kymberly Roth CNP CNOV Observed: 08/23/2017 Status: COMPLETED Source: [address] 2:45 PM [facility] REPOSITORY Office Visit (WSTR) JOSSELIN SOSA ([id number]) 1990 F Date Time Provider Department 08/23/17 2:45 PM KYMBERLY ROTH ([facility] During your visit today, we recorded the following information about you: Temperature Pulse Respiration Blood pressure 98.5 degrees 76/minute 16/minute 118/68 Weight 65.3 kg Kymberly Roth CNP 08/23/2017 3:24 PM Addendum ASSESSMENT/PLAN: 1. Nodule of buttock - ICD9: 782.2, ICD10: R22.2 Appears to be infected No purulent drainage -Tylenol or Ibuprofen for discomfort -Observe area for any worsening signs of infection: redness, warmth, foul odor, drainage or increase in discomfort or size, need to go to ER for further treatment. -Call your primary care physician's office for a follow up appointment if no improvement. - CEPHALEXIN 500 MG CAPSULE Kymberly Roth CNP 08/23/2017 3:25 PM Signed Subjective HPI HPI Josselin Sosa is a 27 year old female who presents today for CC of lump at top of tailbone. This started over the past 24 hours. She is also having mild discomfort. Symptoms are worsened by touch She has tried no treatment or medications Risk factors none knwon PMH not significant BP 118/68 Pulse 76 Temp 36.9 ?C (98.5 ?F) (Tympanic) Resp 16 Wt 65.3 kg (144 lb) ALLERGIES No Known Allergies There is no problem list on file for this patient. No family history on file. Social History Marital status: Spouse name: Years of education: Number of children: Social History Main Topics Smoking status: Never Smoker Smokeless status: Never Used Review of Systems Constitutional: Negative for chills, fever and malaise/fatigue. Genitourinary: Negative for dysuria. Musculoskeletal: Negative for joint pain and myalgias. Skin: Negative for rash. Lump on skin above tailbone Painful Neurological: Negative for headaches. Objective Physical Exam Constitutional: She is oriented to person, place, and time and well-developed, well-nourished, and in no distress. No distress. HENT: Head: Normocephalic and atraumatic. Eyes: Conjunctivae and EOM are normal. Pupils are equal, round, and reactive to light. Neck: Normal range of motion. Neck supple. Pulmonary/Chest: Effort normal. Neurological: She is alert and oriented to person, place, and time. Skin: Skin is warm and dry. Psychiatric: Affect normal. Nursing note and vitals reviewed. ASSESSMENT/PLAN: 1. Nodule of buttock - ICD9: 782.2, ICD10: R22.2 Appears to be infected No purulent drainage -Tylenol or Ibuprofen for discomfort -Observe area for any worsening signs of infection: redness, warmth, foul odor, drainage or increase in discomfort or size, need to go to ER for further treatment. -Call your primary care physician's office for a follow up appointment if no improvement. - CEPHALEXIN 500 MG CAPSULE Diagnosis and treatment plan were discussed and questions were answered to the patient's satisfaction. Pt acknowledged understanding of concepts and follow up plan. Specific signs and symptoms that would indicate the need for higher level of care were discussed in detail warranting prompt ER evaluation. Kymberly Roth CNP Referring Provider: SELF [200] Allergies As of Date: 08/23/2017 (No Known Allergies) Date Reviewed: 08/23/2017 Reviewed by: Jewell Wood Ma - Fully Assessed Reason for Visit: Pain [78] Cmt: near tailbone area x yesterday Primary Visit Diagnosis:Nodule of buttock [R22.2] Order(s):cephALEXin (KEFLEX) 500 mg capsuleTake 1 capsule by mouth twice daily for 10 days.Disp: 20 capsuleRfl: 0 Prescriptions as of 08/23/2017 Sig: CEPHALEXIN 500 MG CAPSULE Take 1 capsule by mouth twice* Problem List As Of Date: 08/23/2017 (None) Other instructions from your clinician: ASSESSMENT/PLAN: 1. Nodule of buttock - ICD9: 782.2, ICD10: R22.2 Appears to be infected No purulent drainage -Tylenol or Ibuprofen for discomfort -Observe area for any worsening signs of infection: redness, warmth, foul odor, drainage or increase in discomfort or size, need to go to ER for further treatment. -Call your primary care physician's office for a follow up appointment if no improvement. - CEPHALEXIN 500 MG CAPSULE Prescriptions ordered this encounter Disp Refills Start End CEPHALEXIN 500 MG CAPSULE 20 c* 0 08/23/2017 09/02/2017 Route: ORAL Sig: Take 1 capsule by mouth twice daily for 10 days. Encounter Status:Closed by KYMBERLY ROTH CNP on 08/23/17 PAP I-G W/RFX Collected: 07/27/2017 Status: F Source: PAOLO HRHPV-APTIMA 2:00 PM [facility] REPOSITORY Order Comment: CYTOLOGY INFORMATION: - CLINICAL INFORMATION: - DATE LMP/MENOPAUSE: - COLLECTION VIAL: Thin Prep Vial - SPANISH SPEAKING BABYSITTER SOURCE: CERVICAL/ENDOCERVICAL - COLLECTION TECHNIQUE: BRUSH/SPATULA Specimen Comment: [id number] Specimen Comment: No. of containers..01 ThinPrep Vial TYPE CODE TESTS RESULT OUT OF RANGE REFERENCE UNITS LAB L7400.0800 . Normal DIAGN Comment Result Comment: NEGATIVE FOR INTRAEPITHELIAL LESION AND MALIGNANCY. LAB L7400.0900 . Normal ADEQ Comment Result Comment: Satisfactory for evaluation. Endocervical and/or squamous metaplastic cells (endocervical component) are present. LAB L7400.1400 . Normal PERFORM Comment Result Comment: Sabiha Cárdenas, Lubricating Machine Tender (ASCP) LAB L7400.2575 . Normal TEST METHOD Comment Result Comment: This liquid based ThinPrep(R) pap test was screened with the use of an image guided system. LAB L7400.2600 . Normal . COMM LAB L7400.2700 . Normal PAPSMR Comment Result Comment: The Pap smear is a screening test designed to aid in the detection of premalignant and malignant conditions of the uterine cervix. It is not a diagnostic procedure and should not be used as the sole means of detecting cervical cancer. Both false-positive and false-negative reports do occur. LAB L7400.2800 . Normal HPV RFLX Comment Result Comment: The HPV DNA reflex criteria were not met with this specimen result therefore, no HPV testing was performed. Performed at: [facility] [id number] Account Collector: Dayana Rankin MD, Phone: [phone] Performed By: #### L7400.0353 #### [facility] (refer to report for specific site) refer to report for address and phone number DISCHARGE SUMMARY Observed: 06/12/2017 Status: F Source: EUFAULA 7:36 AM [facility] REPOSITORY [facility] Medical Records Department [address] [place] [address] Discharge Summary 06/12/17 0733 MR#: [id number] Acct: [id number] Name: JOSSELIN SOSA Rep #: [id number] : 1990 27 From: Virginia Alvarez MD PCP: Care Physician, No Primary Status: ADM IN Location: [place] [address]-1 Discharge Date and Diagnosis - Problem List Patient Problems: Active and Suspected Problems Fourth degree laceration of perineum, delivered, current hospitalization (Acute) (spontaneous vaginal delivery) (Acute) Date of Admission: 06/09/17 Date of Discharge: 06/12/17 - Primary Discharge Diagnosis Active and Suspected Problems Fourth degree laceration of perineum, delivered, current hospitalization (Acute) (spontaneous vaginal delivery) (Acute) Hospital Course and Treatment Operations: None Procedures: None Summary of Care Provided: The patient is a 27 year old F admitted in active labor. She had an at 40 6/7wga complicated by 4th degree perineal lacerations. Her course was unremarkable and she was . Her infant was 8lb 9oz. She received Rhogam . She was discharged to home on day #2. Discharge Diet: No Restrictions Discharge Activity: May Shower, May Take a Tub Bath May resume sexual activity in: 6 weeks Additional Activity Instructions:: Nothing in the vagina for 4-6 weeks. You may return to work/school in 6 weeks. Suture Line Care: Avoid Pulling/Pushing Cleanse incision/area with: Soap AND Water Additional Dressing/Incision Instructions:: You may take tylenol 1000 mg every 8 hrs as needed, and add EITHER two Aleve or three ibuprofen every 8 hr if needed for pain. Home Medications: Medications to take at Discharge Vit Calc,Iron,Folic [ Vitamins] 1 each PO DAILY 06/09/17 Docusate Sodium [Colace] 100 mg PO BID #30 cap 06/10/17 Polyethylene Glycol 3350 [Miralax] 17 gm PO DAILY #30 packet 06/10/17 Ferrous Sulfate 325 mg PO DAILY 30 Days #30 tab 06/11/17 Following Prescrptions Were Given to Patient: Ferrous Sulfate 325 mg PO DAILY 30 Days #30 tab Polyethylene Glycol 3350 [Miralax] 17 gm PO DAILY #30 packet Docusate Sodium [Colace] 100 mg PO BID #30 cap Other Amb Orders: Electric breast pump Time Frame: 1 Year, Location: None Selected Primary Care Physician: Care Physician,No Primary [Primary Care Provider] - Please Follow Up With: Virginia Booth MD Meaningful Use Info Meaningful Use Diagnoses (Choose all that apply): None applicable 06/12/17 0736 <Electronically signed by Virginia Booth MD> Date Virginia Booth MD Cosigner Signature (if applicable): Date CC: No Primary Care Physician; Virginia Booth MD Signed DISCHARGE INSTRUCTION Observed: 06/12/2017 Status: F Source: PAOLO 7:33 AM [facility] REPOSITORY [facility] Medical Records Department [address] [address] Instructions for Home/Discharge Instructions 06/12/17 0731 MR#: [id number] Acct: [id number] Name: JOSSELIN SOSA Rep #: [id number] : 1990 27 From: Virginia Alvarez MD PCP: Care Physician, No Primary Status: ADM IN Discharge Diet: No Restrictions Discharge Activity: May Shower, May Take a Tub Bath May resume sexual activity in: 6 weeks Additional Activity Instructions:: Nothing in the vagina for 4-6 weeks. You may return to work/school in 6 weeks. Suture Line Care: Avoid Pulling/Pushing Cleanse incision/area with: Soap AND Water Additional Dressing/Incision Instructions:: You may take tylenol 1000 mg every 8 hrs as needed, and add EITHER two Aleve or three ibuprofen every 8 hr if needed for pain. Additional Instructions: If you experience any of the following, contact your healthcare provider. * Bleeding that soaks a pad every hour for 2 hours * Fever 100.4 or higher * Unrelieved incision or abdominal pain * Swelling, redness, discharge or bleeding from your incision or episiotomy site * Your incision begins to separate * Problems urinating (including inability to urinate or burning while urinating). * Visual changes * Severe headache * Flu-like symptoms * Pain or redness in one of both of your breasts * Pain, warmth, tenderness or swelling in your legs, especially the calf area * Frequent nausea and vomiting * Symptoms of depression or anxiety If you experience any of the following, call 911 or go to the nearest Emergency Room. * Chest pain * Problems breathing * Seizure activity * Partial or complete paralysis of a body part, slurred speech, weakness or drooping of the face, or a sudden inability to walk or hold your balance Allergies/Adverse Reactions: Allergies No Known Allergies Allergy (Verified 06/09/17 20:37) Medications to take at Discharge Vit Calc,Iron,Folic [ Vitamins] 1 each PO DAILY 06/09/17 Docusate Sodium [Colace] 100 mg PO BID #30 cap 06/10/17 Polyethylene Glycol 3350 [Miralax] 17 gm PO DAILY #30 packet 06/10/17 Ferrous Sulfate 325 mg PO DAILY 30 Days #30 tab 06/11/17 The following prescriptions were given: Ferrous Sulfate 325 mg PO DAILY 30 Days #30 tab Polyethylene Glycol 3350 [Miralax] 17 gm PO DAILY #30 packet Docusate Sodium [Colace] 100 mg PO BID #30 cap Orders to be completed after discharge: Electric breast pump Time Frame: 1 Year, Location: None Selected Please Follow Up With: Virginia Booth MD When: 1 week Primary Care Physician: Care Physician,No Primary [Primary Care Provider] - Proposed Discharge Date: 06/12/17 06/12/17 0733 <Electronically signed by Virginia Booth MD> Date Virginia Booth MD CC: No Primary Care Physician CBC-COMPLETE BLOOD CNT Collected: 06/11/2017 Status: F Source: PAOLO NO DIFF 4:30 AM [facility] REPOSITORY Order Comment: Reason for Laboratory Test Day #1 TYPE CODE TESTS RESULT OUT OF RANGE REFERENCE UNITS LAB L100.1000 4.4-11.0 K/mm3 Normal WBC 8.6 LAB L100.1200 4.2-5.4 M/mm3 Low RBC 2.71 LAB L100.1300 12.0-15.0 g/dl Low HGB 8.7 LAB L100.1400 37-47 % Low HCT 26.1 LAB L100.1500 81-99 fL Normal MCV 96.3 LAB L100.1600 27.0-32.0 pg High MCH 32.1 LAB L100.1700 32-36 g/gl Normal MCHC 33.3 LAB L100.1810 11.6-14.6 % Normal RDW CV 14.6 LAB L100.1820 35.1-43.9 fl High RDW SD 48.2 LAB L100.1900 150-450 K/mm3 Normal PLT 181 LAB L100.2000 6.2-12.0 fl Normal MPV 10.0 Performed By: #### L100.0500 #### [facility] [address] [place], [address] RHOGAM Collected: 06/10/2017 Status: F Source: PA[place]O 1:44 PM [facility] REPOSITORY TYPE CODE TESTS RESULT OUT OF REFERENCE UNITS RANGE LAB U100.2500 [id number] TRANSFUSED PRODUCT: Rho(D) Immune Globulin RhoGam COUNT: 1 Performed By: #### U100.2500 #### Non-[facility] - refer to report for specific site RH NEGATIVE MOM Collected: 06/10/2017 Status: F Source: PAOLO WORKUP 7:35 AM [facility] REPOSITORY Order Comment: Baby's Full Name FLASH SOSA Baby's Bracelet # [id number] Baby's MR # [id number] TYPE CODE TESTS RESULT OUT OF RANGE REFERENCE UNITS LAB B101.0425 A Normal MOM'S ABO NEGATIVE RH LAB B101.0450 Normal MOM'S ABS NEGATIVE LAB B101.0500 NEGATIVE Normal NEGATIVE SCREEN LAB B101.0950 A Normal BABY'S POSITIVE ABO RH LAB B101.1000 NEGATIVE Normal BABY'S NEGATIVE INGA Performed By: #### B101.0300 #### [facility] [address] [place], [address] DISCHARGE INSTRUCTION Observed: 06/10/2017 Status: F Source: PAOLO 2:44 AM [facility] Medical Records Department [address] [place] [address] Instructions for Home/Discharge Instructions 06/10/17 0240 MR#: [id number] Acct: [id number] Name: JOSSELIN SOSA Rep #: [id number] : 1990 27 From: Agatha Caro MD PCP: Care Physician, No Primary Status: ADM IN Discharge Diet: No Restrictions Discharge Activity: May Shower, May Take a Tub Bath May resume sexual activity in: 4-6 weeks Additional Activity Instructions:: Nothing in the vagina for 4-6 weeks. You may return to work/school in 6 weeks. Additional Dressing/Incision Instructions:: You may take tylenol 1000 mg every 8 hrs as needed, and add EITHER two Aleve or three ibuprofen every 8 hr if needed for pain. Additional Instructions: If you experience any of the following, contact your healthcare provider. * Bleeding that soaks a pad every hour for 2 hours * Fever 100.4 or higher * Unrelieved incision or abdominal pain * Swelling, redness, discharge or bleeding from your incision or episiotomy site * Your incision begins to separate * Problems urinating (including inability to urinate or burning while urinating). * Visual changes * Severe headache * Flu-like symptoms * Pain or redness in one of both of your breasts * Pain, warmth, tenderness or swelling in your legs, especially the calf area * Frequent nausea and vomiting * Symptoms of depression or anxiety If you experience any of the following, call 911 or go to the nearest Emergency Room. * Chest pain * Problems breathing * Seizure activity * Partial or complete paralysis of a body part, slurred speech, weakness or drooping of the face, or a sudden inability to walk or hold your balance * Allergies/Adverse Reactions: Allergies No Known Allergies Allergy (Verified 06/09/17 20:37) Medications to take at Discharge Vit Calc,Iron,Folic [ Vitamins] 1 each PO DAILY 06/09/17 Docusate Sodium [Colace] 100 mg PO BID #30 cap 06/10/17 Polyethylene Glycol 3350 [Miralax] 17 gm PO DAILY #30 packet 06/10/17 Please Follow Up With: Virginia Booth MD - [phone] Primary Care Physician: Care Physician,No Primary [Primary Care Provider] - Proposed Discharge Date: 06/12/17 06/10/17 0244 <Electronically signed by Agatha Caro MD> Date Agatha Caro MD CC: No Primary Care Physician OPERATIVE REPORT Observed: 06/10/2017 Status: F Source: PAOLO 2:40 AM [facility] Medical Records Department [address] [place] [address] Operative Report 06/10/17 0230 MR#: [id number] Acct: [id number] Name: JOSSELIN SOSA Rep #: [id number] : 1990 27 From: Agatha Caro MD PCP: Care Physician, No Primary Status: ADM IN Location: [id number] Vaginal Delivery Maternal Presentation: Active Labor 40 5/7 wk labor Amniotic Membrane Rupture Type: Artificial Amniotic Fluid Description: Moderate meconium Final LIZZETH: 06/04/17 Gestational age: 40 Weeks and 6 Days [place] doctor who attended delivery (if requested by OB): Jaylyn Phillips Date of Procedure: 06/10/17 Pre-Operative Diagnosis: 40 6/7 wk Post-Operative Diagnosis: same Surgery/ Procedure Performed: Spontaneous Vaginal Delivery Type of Anesthesia: Epidural Description of Procedure: of a cleary male over midline episiotomy with extension. Head delivered ISELA. Nuchal cord x one reduced shoulders delivered easily. Baby vigorous and crying and to maternal abdomen. Delayed cord clamping . Cord clamped x two and cut. Dr. Phillips present for delivery d/t meconium stained fluid. Routine cord blood for typing obtained. Placenta delivered by spont expulsion, expression. 3V cord, normal appearing and intact with trailing membranes PP exam: 4th degree extension noted. and bilateral vaginal sidewall lacerations. Repaired under 1% lidocaine to hemostatic and intact in layers. -- Rectal mucosa repaired with 3-0 chromic. -- Anal spincter repaired with intermittent 2-0 chromic to reapproximate. -- Vaginal lacerations then repaired with 3-0 vicryl. EBL 450 cc Patient and infant tolerated delivery well. To recovery , stable condition. RayTec counts correct: 30 used. 7 suture / needles and syringe with attached needle to sharps container. Presentation: Vertex, ISELA Placental Delivery Description: Spontaneous, Expressed Placenta Disposition: [facility] Cord Vessel Description: 3 Vessels Nuchal Cord Compression: Without compression Cord Entanglement: Around neck x 1, loose Estimated Blood Loss: 450 A gender: Male (1 minute): 8 (5 minute): 9 Episiotomy Description: Midline Laceration: Midline, Perineal Extension/lac, Vaginal Extension/lac, 4th Degree - Bilateral 2nd deg vaginal side wall tears also. Medications given after delivery: IV Pitocin Complications: None 06/10/17 0240 <Electronically signed by Agatha Caro MD> Date Agatha Caro MD CC: No Primary Care Physician; Agatha Caro MD Signed CBC-COMPLETE BLOOD CNT Collected: 06/09/2017 Status: F Source: PAOLO NO DIFF 8:45 PM [facility] TYPE CODE TESTS RESULT OUT OF RANGE REFERENCE UNITS LAB L100.1000 4.4-11.0 K/mm3 Normal WBC 8.6 LAB L100.1200 4.2-5.4 M/mm3 Normal RBC 4.39 LAB L100.1300 12.0-15.0 g/dl Normal HGB 14.2 LAB L100.1400 37-47 % Normal HCT 40.8 LAB L100.1500 81-99 fL Normal MCV 92.9 LAB L100.1600 27.0-32.0 pg High MCH 32.3 LAB L100.1700 32-36 g/gl Normal MCHC 34.8 LAB L100.1810 11.6-14.6 % High RDW CV 14.7 LAB L100.1820 35.1-43.9 fl High RDW SD 48.2 LAB L100.1900 150-450 K/mm3 Normal PLT 252 LAB L100.2000 6.2-12.0 fl Normal MPV 10.6 Performed By: #### L100.0500 #### [facility] [address] [place], [place], [id number] TYPE AND SCREEN Collected: 06/09/2017 Status: F Source: PAOLO 8:45 PM [facility] Order Comment: Reason for Type AND Screen/Red Cells: ROUTINE TYPE CODE TESTS RESULT OUT OF RANGE REFERENCE UNITS LAB B10.0800 A Normal BLOOD TYPE GEL NEGATIVE LAB B100.4000 Normal Antibody NEGATIVE Screen Performed By: #### B101.7450 #### [facility] [address] [place], [place], [address] ALLERGIES ALLERGIES DATE TYPE / CODE NAME / CODE REACTION SEVERITY SOURCE 06/09/2017 Drug No Known Unknown [place] Allergy/060923738(S Allergies/F0019 [facility] NOMED CT) [address](RXNORM) Hospital Repository Miscellaneous No Known Drug Moderate Luigi Pomerene Allergy/736508673(S Allergies (Severity [facility] NOMED CT) Modifier) Hospital (Qualifier Repository Value) ENCOUNTERS ENCOUNTERS ADMIT/DISCHARGE ACCOUNT ADMITTING ENCOUNTER LOCATION SOURCE NUMBER CLASS 05/22/2018/05/22/20 [id number] [address] Repository 05/05/2018 [id number] [facility] ding:LABSPEC Repository 04/26/2018/04/26/20 [id number] KEVIN SOSA Ambulatory [address] Repository 04/21/2018/04/21/20 [id number] KEVIN SOSA Ambulatory [address] Repository 04/09/2018/04/09/20 [id number] KEVIN SOSA Ambulatory [address] Repository 02/17/2018/02/18/20 [id number] PANCHO FOOTE [facility] [address] [place] [address] Room: [address] Repository 01/11/2018/01/12/20 [id number] PANCHO FOOTE [facility]ulatory [address] [place] [address] Room: [address] Repository 12/16/2017/12/17/19 [id number] PANCHO FOOTE Ambulatory [address] Repository 08/27/2017/08/28/19 [id number] KEITH MARIA Ambulatory [address] [place] [address] Room: [address] Repository 08/23/2017/08/25/19 [id number] Ambulatory [address] Repository 07/27/2017 [id number] [facility] ding:LABSPEC Repository 06/09/2017/06/12/19 [id number] Agatha Caro Inpatient [address] ding:WPRoom: Repository [id number]: 1 06/04/2017 [id number] [place], Ambulatory [facility] ding:WP Repository PAYERS PAYERS ENCOUNTER GUARANTOR PAYER SUBSCRIBER SOURCE 05/22/2018 JOSSELIN Cheek Primary JOSSELIN Abarca BOYDDOB: Insurance:AULTCARE BOYDDOB: [facility] [id number] [facility] [id number] Number: [address] Repository [address], [id number] [address] [place] [address] Date:[place] [id number]: () 05/05/2018 Josselin [facility] Josselin Morenochris [id number] Insurance:AULTCAREPoli BoydDOB: [address] Number: [id number] [address]Vdd: [id number] Repository Date:7700-56-07RU [address] () [address], [place] [address]QP: 05/05/2018 [facility]SELF PAY [facility] Number: Effective Repository Date:2018-05-05 04/26/2018 JOSSELIN Cheek [facility] JOSSELIN Abarca BOYDDOB: Insurance:AULTCARE BOYDDOB: [facility] [id number] Number: [address]ository [address] [place] [id number] Date:Plan Name:[facility] [id number]: () 04/21/2018 JOSSELIN Cheek [facility] JOSSELINKAY Abarca BOYDDOB: Insurance:AULTCARE BOYDDOB: [facility] [id number] [facility] [address] Number: [address] Repository [address] [place] [id number] Date:Plan Name:[facility] [id number]: () 04/09/2018 JOSSELIN Cheek [facility] JOSSELIN MAURERDDOB: Insurance:AULTCARE BOYDDOB: [facility] [id number] [address] Number: [address] Repository [address] [place] [id number] Date:Plan Name:[facility] [id number]: () 02/17/2018 JOSSELIN J Primary JOSSELIN MAURERDDOB: Insurance:AULTCARE BOYDDOB: [facility] [id number] [facility] [address] Number: [address] Repository [address] [place] [address] [id number], [place] Date:[place] [id number]: (HP) 01/11/2018 JOSSELIN Cheek Primary JOSSELIN MAURERDDOB: Insurance:AULTCARE BOYDDOB: [facility] [id number] [facility] [address] Number: [address] Repository [address] [place] [address], [id number], [place] Date:Plan Name:[facility] [id number]: () 12/16/2017 JOSSELIN J Primary JOSSELIN MAURERDDOB: Insurance:AULTCARE BOYDDOB: [facility] [id number] [facility] [address] Number: [address] Repository [address] [place] [id number], [place] Date:Plan Name:[place] [id number]: () 08/27/2017 JOSSELIN J Primary JOSSELIN MAURERDDOB: Insurance:AULTCARE BOYDDOB: [facility] [id number] [facility] [address] Number: [address] Repository [address] [place] [id number], [place] Date:Plan Name:[place] [id number]: () 07/27/2017 Josselinkay Schwab [place] [id number] Insurance:Bharathi ChOB: Community [address] [place] [address], [place] Number: [id number]-Canonc[facility] [address]Lfy: [id number] Repository Date:8054-68-22TS [address] () [address], [place] [address]FZ: 07/27/2017 Secondary NOT GIVENUNK [place] Insurance:SELF PAY [facility] Number: Effective Repository Date:2017-07-27 06/09/2017 [facility] [id number] Insurance:Bharathi ChOB: Community [address] [place] [address], [place] Number: [id number]-Canoncito-Lag[facility] [address]Tal: [id number] Repository Date:8551-05-79VN [address] () [address], [place] [address]UV: 06/09/2017 Secondary NOT GIVENUNK [place] Insurance:SELF PAY [facility] Number: Effective Repository Date:2017-06-09 06/04/2017 [facility] [id number] [address] Insurance:Bharathi ChOB: Community [address] [place] [address], [place] Number: [id number]-Canonc[facility] [address]Jdb: [id number] Repository Date:4789-05-70VT [address] () [address], [place] [address]TH: 06/04/2017 Secondary NOT GIVENUNK [place] Insurance:SELF PAY [facility] Number: Effective Repository Date:2017-05-28
== END ==
PROVIDERS: Referring Provider Otolaryngology; Visit Provider Otolaryngology
DX: J02.9 Acute pharyngitis, unspecified (principal)
CPT/HCPCS: 87070

== ENCOUNTER → 2018-12-15 13:28 | Outpatient (CLI) | payer OTHER, SELFPAY ==
[2018-12-20 12:29] LABS: HPV APTIMA, High Risk Negative (Negative)
== END ==
PROVIDERS: Visit Provider Obstetrics & Gynecology
DX: Z12.4 Encounter for screening for malignant neoplasm of cervix (principal)
CPT/HCPCS: 87624; 88175; G0145

== ENCOUNTER → 2019-08-25 13:04 | Outpatient (CLI) | payer OTHER, SELFPAY ==
[2019-08-25 13:46] LABS: hCG Titer Quant., Serum 181 mIU/mL (1-3)
== END ==
PROVIDERS: Visit Provider Obstetrics & Gynecology
DX: O20.0 Threatened abortion (principal); Z3A.00 Weeks of gestation of pregnancy not specified
CPT/HCPCS: 36415; 84702

== ENCOUNTER → 2019-08-31 10:16 | Outpatient (CLI) | payer OTHER, SELFPAY ==
[2019-08-31 11:13] LABS: hCG Titer Quant., Serum 6 mIU/mL (1-3)
== END ==
PROVIDERS: Visit Provider Obstetrics & Gynecology
DX: O03.9 Complete or unspecified spontaneous abortion without complication (principal)
CPT/HCPCS: 36415; 84702

== ENCOUNTER → 2019-09-09 10:34 | Outpatient (CLI) | payer OTHER, SELFPAY ==
[2019-09-09 11:35] LABS: hCG Titer Quant., Serum < 1 mIU/mL (1-3)
== END ==
PROVIDERS: PCP Family Medicine; Referring Provider Obstetrics & Gynecology; Visit Provider Obstetrics & Gynecology
DX: O03.9 Complete or unspecified spontaneous abortion without complication (principal)
CPT/HCPCS: 36415; 84702

== ENCOUNTER → 2019-09-26 09:53 | Outpatient (CLI) | payer OTHER, SELFPAY ==
[2019-09-26 10:49] LABS: Prolactin 14.5 ng/mL
[2019-09-27 04:06] LABS: DHEA Sulfate 74.3 ug/dL (84.8-378.0)
[2019-09-27 15:45] LABS: Sex Hormone-binding Globulin 78.9 nmol/L (24.6-122.0)
== END ==
PROVIDERS: PCP Family Medicine; Visit Provider Obstetrics & Gynecology
DX: E28.8 Other ovarian dysfunction (principal); N96 Recurrent pregnancy loss
CPT/HCPCS: 36415; 82533; 82627; 84146; 84270; 84403; 82626

== ENCOUNTER → 2019-10-28 09:11 | Outpatient (CLI) | payer OTHER, SELFPAY | PROVIDERS: PCP Family Medicine; Visit Provider Obstetrics & Gynecology | DX: O03.9 Complete or unspecified spontaneous abortion without complication (principal) | CPT/HCPCS: 36415; 82627; 84403; 82626 ==

== ENCOUNTER 2019-11-28 09:26 | Outpatient (RCR) | payer OTHER, SELFPAY | END 2019-12-06 23:59 | LOC: WOBLAB 09:26 | PROVIDERS: PCP Family Medicine; Visit Provider Obstetrics & Gynecology | DX: N92.6 Irregular menstruation, unspecified (principal); E28.8 Other ovarian dysfunction | CPT/HCPCS: 36415; 82627; 84403; 82626 ==

== ENCOUNTER → 2020-03-26 | Outpatient (CLI) | payer OTHER, SELFPAY ==
[2020-03-26 17:42] LABS: Estradiol 81.3 pg/mL
[2020-03-26 17:44] LABS: Progesterone Level 14.38 ng/mL (See Comment)
== END | disposition home or self-care (01) ==
LOC: WOBLAB 15:59
PROVIDERS: PCP Family Medicine; Visit Provider Obstetrics & Gynecology
DX: N92.6 Irregular menstruation, unspecified (principal); E28.8 Other ovarian dysfunction
CPT/HCPCS: 36415; 82670; 84144

== ENCOUNTER → 2020-04-26 16:04 | Outpatient (CLI) | payer OTHER, SELFPAY ==
[2020-04-26 17:37] LABS: hCG Titer Quant., Serum < 1 mIU/mL (1-3)
[2020-04-26 17:38] LABS: Progesterone Level 30.37 ng/mL (See Comment)
== END ==
PROVIDERS: PCP Family Medicine; Visit Provider Obstetrics & Gynecology
DX: N92.6 Irregular menstruation, unspecified (principal)
CPT/HCPCS: 36415; 84144; 84702

== ENCOUNTER → 2020-05-25 13:56 | Outpatient (CLI) | payer OTHER, SELFPAY ==
[2020-05-25 16:09] LABS: Progesterone Level 28.51 ng/mL (See Comment)
== END ==
PROVIDERS: PCP Family Medicine; Visit Provider Obstetrics & Gynecology
DX: N97.0 Female infertility associated with anovulation (principal)
CPT/HCPCS: 36415; 84144

== ENCOUNTER → 2020-07-05 16:12 | Outpatient (CLI) | payer OTHER, SELFPAY ==
[2020-07-05 17:54] LABS: hCG Titer Quant., Serum 673 mIU/mL (1-3)
[2020-07-05 19:03] LABS: Estradiol 338.9 pg/mL
[2020-07-05 20:33] LABS: Progesterone Level > 60.00 ng/mL (See Comment)
== END ==
PROVIDERS: PCP Family Medicine; Visit Provider Obstetrics & Gynecology
DX: N96 Recurrent pregnancy loss (principal); E28.8 Other ovarian dysfunction
CPT/HCPCS: 36415; 82670; 84144; 84702

== ENCOUNTER → 2020-07-18 14:55 | Outpatient (CLI) | payer OTHER, SELFPAY ==
[2020-07-18 16:31] LABS: Absolute Lymphocyte Count 1.23 X10^3/uL (0.83-4.51); Absolute Neutrophil Count 4.1 X10^3/uL (2.0-7.7); Basophil# 0.03 X10^3/uL; Basophil% 0.5 % (0-1); Eosinophil# 0.03 X10^3/uL; Eosinophils% 0.5 % (0-5); Hematocrit 41.7 % (37-47); Hemoglobin 14.3 g/dL (12.0-15.0); Lymphocyte # 1.23 X10^3/ul (4.0); Mean Corp Hgb Conc 34.3 g/dL (32-36); Mean Corpuscular Hgb 31.4 pg (27.0-32.0); Mean Corpuscular Volume 91.4 fL (81-99); Mean Platelet Vol. 10.3 fl (6.2-12.0); Monocyte# 0.49 X10^3/uL; Monocyte% 8.4 % (0-10); NRBC Flagged by Analyzer 0 % (0-5); Neutrophil # 4.05 X10^3/uL (2.7-7.7); Neutrophil % 69.3 % (47-70); Platelet Count 254 K/mm3 (150-450); RBC Distribution Width CV 12.9 % (11.6-14.6); RBC Distribution Width SD 42.7 fl (35.1-43.9); Red Blood Count 4.56 M/mm3 (4.2-5.4); White Blood Count 5.9 K/mm3 (4.4-11.0)
[2020-07-18 16:38] LABS: Color, Urine Yellow (Yellow); Glucose, Dipstick Normal (Normal); Ketone-Dipstick Negative (Negative); Leukocyte Esterase-Dipstick 25 /ul (Negative); Nitrite-Dipstick Negative (Negative); Occult Blood-Urine Negative /ul (Negative); Protein-Dipstick Negative (Negative); Urine Bilirubin Dipstick Negative (Negative); Urine Clarity Sl. Cloudy (Clear); Urine Urobilinogen Normal (Normal)
[2020-07-18 16:53] LABS: Thyroid Stim Hormone (TSH) 1.55 uIU/mL (0.358-3.74)
[2020-07-18 17:00] LABS: Amphetamine Urine VISTA NEGATIVE (<1000 ng/mL); Barbiturate Urine VISTA NEGATIVE (< 200 ng/mL); Benzodiazepine Urine VISTA NEGATIVE (< 200 ng/mL); Cocaine Urine VISTA NEGATIVE (< 300 ng/mL); Ecstacy Urine VISTA NEGATIVE (< 500 ng/mL); Methadone Urine VISTA NEGATIVE (< 300 ng/mL); PCP Urine VISTA NEGATIVE (< 25 ng/mL); THC Urine VISTA NEGATIVE (< 50 ng/mL); Vista UDS pH Range 6
[2020-07-19 01:42] LABS: Prenatal RPR NONREACTIVE (NONREACTIVE)
[2020-07-19 09:06] LABS: HIV - WCH Non-Reactive (Nonreactive); Hepatitis B Surface Antigen Non-Reactive (Nonreactive); Hepatitis C Antibody Non-Reactive (Nonreactive); Rubella IgG Reactive (Nonreactive)
[2020-07-21 20:07] LABS: Chlamydia By Nucleic Acid AMP Negative (Negative)
[2020-07-21 21:08] LABS: Gonococcus By Nucleic Acid AMP Negative (Negative)
[2020-07-24 14:44] LABS: HPV APTIMA, High Risk Negative (Negative)
== END ==
PROVIDERS: PCP Family Medicine; Visit Provider Obstetrics & Gynecology
DX: Z34.81 Encounter for supervision of other normal pregnancy, first trimester (principal); Z12.4 Encounter for screening for malignant neoplasm of cervix; Z11.3 Encounter for screening for infections with a predominantly sexual mode of transmission
CPT/HCPCS: 36415; 80307; 81002; 84443; 85025; 86703; 86762; 86803; 87340; 87491; 87591; 87624; 88175; G0145

== ENCOUNTER → 2020-12-14 14:53 | Outpatient (CLI) | payer OTHER, SELFPAY ==
[2020-12-14 15:31] LABS: Hematocrit 31.7 % (37-47); Hemoglobin 10.7 g/dL (12.0-15.0); Mean Corp Hgb Conc 33.8 g/dL (32-36); Mean Corpuscular Hgb 32.6 pg (27.0-32.0); Mean Corpuscular Volume 96.6 fL (81-99); Mean Platelet Vol. 10.1 fl (6.2-12.0); Platelet Count 220 K/mm3 (150-450); RBC Distribution Width CV 14.6 % (11.6-14.6); RBC Distribution Width SD 50.3 fl (35.1-43.9); Red Blood Count 3.28 M/mm3 (4.2-5.4); White Blood Count 6.5 K/mm3 (4.4-11.0)
[2020-12-14 16:25] LABS: Glucose Challenge Gest 1H 50g 85 mg/dL (70-140)
[2020-12-17 15:00] LABS: Ferritin 4 ng/mL (8-252)
== END ==
PROVIDERS: PCP Family Medicine; Visit Provider Obstetrics & Gynecology
DX: Z34.83 Encounter for supervision of other normal pregnancy, third trimester (principal); D64.9 Anemia, unspecified
CPT/HCPCS: 36415; 82728; 82950; 85027; 86850

== ENCOUNTER → 2021-02-13 16:55 | Outpatient (CLI) | payer OTHER, SELFPAY | PROVIDERS: PCP Family Medicine; Visit Provider Obstetrics & Gynecology | DX: Z36.85 Encounter for antenatal screening for Streptococcus B (principal) | CPT/HCPCS: 87081 ==

== ENCOUNTER 2021-03-02 12:47 | Emergency (ER) | payer OTHER, SELFPAY ==
[2021-03-02 12:48] VITALS: BP 117/76; PULSE 92; RESP 16; TEMP 36.3; O2SAT 99; BMI 26.9
--- NOTE | 2021-03-02 12:53 | VDLE_ITS ---
Reason For Study: Pain Procedure LEFT This is a venous duplex using B-mode, color GSV is normal. flow and spectral Doppler. CFV is compressible, spontaneous, phasic, Exam performed in department. competent, and demonstrates normal A preliminary report was called and/or faxed augmentation. to Joaquim. FV is compressible, spontaneous, phasic, competent and demonstrates normal augmentation. POP V is compressible, spontaneous, phasic, competent and demonstrates normal augmentation. T/P Trunk is compressible. PTV is compressible. LT PerV is compressible. VL/Venous Duplex US, Unilateral Interpretation Summary There is no evidence of left lower extremity deep vein thrombosis. Left great s aphenous vein appears patent and compressible segmentally. Ordering Physician: Carmelo March Referring Physician: Suresh Villa Performed By: Vanessa Wallace RVT
--- NOTE | 2021-03-02 14:28 | EDS_ITS ---
HPI History of Present Illness Chief Complaint: Lower Extremity Injury Narrative Narrative: 30-year-old female who states she is 38 weeks presenting with left calf pain. She is also on quarantine for COVID-19 as she tested positive. She has 2 days left of her quarantine. She denies chest pain or shortness of breath. She denies history of DVT/PE. She is not having trouble ambulating. Her PRODUCE CLERK sent her in for a DVT study given her pain. She denies any trauma or paresthesias. PFSH PFSH Medical History no medical history Home Medications prenat.vits,osbaldo,klc-yoqn-carse [ Vitamins] 1 ea PO DAILY 06/09/17 [History Last Taken 06/08/17 18:00 1 tab] docusate sodium 100 mg PO BID #30 cap 06/10/17 [Rx Last Taken Unknown] polyethylene glycol 3350 17 gm PO DAILY #30 packet 06/10/17 [Rx Last Taken Unknown] ferrous sulfate 325 mg PO DAILY 30 Days #30 tab 06/11/17 [Rx Last Taken Unknown] Allergy/AdvReac Type Severity Reaction Status Date / Time No Known Allergies Allergy Verified 03/02/21 12:50 Social History Smoking Status: Never smoker ROS ROS ED Constitutional Constitutional ED: Denies chills or fever(s) Eyes Eyes: Denies blurry vision or diplopia ENT ENT ED: Denies rhinorrhea or sore throat Cardiovascular Cardiovascular: Denies chest pain or palpitations Respiratory/Chest Respiratory/Chest: Denies cough or dyspnea Gastrointestinal Gastrointestinal: Denies abdominal pain, nausea or vomiting Genitourinary Genitourinary ED: Denies dysuria or hematuria Musculoskeletal Musculoskeletal: Reports other Details: Left calf pain Integumentary Denies Abrasions or rash Neurologic Neurologic: Denies headache(s) or paresthesias EXAM Physical Exam Const Vital Signs: 03/02/21 12:48 Temperature 97.3 F L Temperature Source Temporal Pulse Rate 92 Respiratory Rate 16 Blood Pressure 117/76 Blood Pressure Mean 89 Pulse Ox 99 Oxygen Delivery Method Room Air Positive well nourished General Appearance ED: NAD HEENT normocephalic and atraumatic Resp normal respiratory effort and no use of accessory muscles Cardio regular rate and regular rhythm Extremity Extremity Narrative: Mild tenderness to palpation of the left calf dorsally. No cords palpated. Compartments are soft. Psych mental status grossly normal Skin Lesions: no lesions Rashes: no rashes MDM MDM MDM Narrative Medical decision making narrative: Patient presenting with left calf pain and concern for DVT. Obtain a DVT study of the left lower extremity which is negative for DVT. Patient's exam is remarkable only for mild pain in the dorsal aspect of the left calf. Patient will continue to quarantine at home. She states she has an appointment to follow-up with her PRODUCE CLERK after her quarantine. She is given return precautions. Impression: 1. Left calf pain Discharge Plan Triage Chief Complaint: Lower Extremity Injury ED Provider: Carmelo March Dx/Rx/DC Orders Instructions: ED Leg Spasm Prescriptions: No Action Vitamin 1 EACH tablet 1 ea PO DAILY RF: 0 docusate sodium 100 MG capsule 100 mg PO BID Qty: 30 RF: 0 polyethylene glycol 3350 17 GM packet 17 gm PO DAILY Qty: 30 RF: 0 ferrous sulfate 325 MG tablet 325 mg PO DAILY 30 Days Qty: 30 RF: 0 Primary Care Provider: Suresh Villa Referrals: Suresh Villa MD [Primary Care Provider] - Disposition Disposition: Home, Self Care Discharge Date/Time: 03/02/21 14:31
== END 2021-03-02 14:31 | disposition home or self-care (01) ==
PROVIDERS: Emergency Provider Student in an Organized Health Care Education/Training Program; PCP Family Medicine
DX: O26.893 Other specified pregnancy related conditions, third trimester (principal); M79.662 Pain in left lower leg; Z3A.38 38 weeks gestation of pregnancy
CPT/HCPCS: 93971; 99282

== ENCOUNTER 2021-03-10 19:05 | Inpatient (IN) | payer OTHER, SELFPAY ==
[2021-03-10 19:20] VITALS: BMI 25.0
[2021-03-10 19:38] VITALS: TEMP 36.9
[2021-03-10 19:39] VITALS: BP 113/73; PULSE 77
[2021-03-10 19:40] VITALS: PULSE 85; O2SAT 97
[2021-03-10] MEDS: Lactated Ringers 1,000 ML 50 ML IV (19:55)
[2021-03-10 20:22] LABS: Absolute Lymphocyte Count 1.29 X10^3/uL (0.83-4.51); Absolute Neutrophil Count 4.6 X10^3/uL (2.0-7.7); Basophil# 0.02 X10^3/uL; Basophil% 0.3 % (0-1); Eosinophils% 1.5 % (0-5); Hematocrit 35.5 % (37-47); Hemoglobin 12.3 g/dL (12.0-15.0); Lymphocyte # 1.29 X10^3/ul (0.83-4.51); Lymphocyte % 19.5 % (19-41); Mean Corp Hgb Conc 34.6 g/dL (32-36); Mean Corpuscular Hgb 32.5 pg (27.0-32.0); Mean Corpuscular Volume 93.7 fL (81-99); Mean Platelet Vol. 10.2 fl (6.2-12.0); Monocyte# 0.54 X10^3/uL; Monocyte% 8.2 % (0-10); NRBC Flagged by Analyzer 0 % (0-5); Neutrophil # 4.64 X10^3/uL (2.7-7.7); Neutrophil % 70.2 % (47-70); Platelet Count 295 K/mm3 (150-450); RBC Distribution Width CV 14.6 % (11.6-14.6); RBC Distribution Width SD 50.2 fl (35.1-43.9); Red Blood Count 3.79 M/mm3 (4.2-5.4); White Blood Count 6.6 K/mm3 (4.4-11.0)
[2021-03-10] MEDS: miSOPROStol 25 MCG TABLET VAGINAL (20:23)
--- NOTE | 2021-03-10 20:27 | PCM.HP.BLA ---
History and Physical Date of Admission: 03/10/21 Chief complaint: Induction of labor at term History of present illness: 30-year-old G4, P1 at 39 weeks and 6 days with LIZZETH: 03/11/2021 by 10wk U/s arrives for induction of labor at term. Denies headache, visual changes, chest pain, shortness of breath, nausea vomiting, right upper quadrant pain. Patient states good movement. Obstetric history: G1: SAB G2: Term 06/10/2017 complicated by fourth degree laceration G3: SAB G4: Current Past medical history: Covid + 02/23/2021 Medications: vitamin Past surgical history: Cholecystectomy, pilonidal cyst removal, wisdom teeth extraction, D&C Allergies: No known drug allergies Social history: Denies smoking, alcohol use, drug use Family history: Denies history DVT or PE Review of systems: Besides above pertinent positives a full review of systems was performed and found to be negative Physical exam: Vitals: Blood pressure 113/73 pulse 85 SPO2 97% on room air General: Normal-appearing no acute distress HEENT: Normocephalic atraumatic no cervical of adenopathy Cardiac/respiratory: No use of accessory muscles, nonlabored breathing Abdomen: Soft, nontender, gravid Extremities: No peripheral edema normal peripheral pulses Psych: Normal affect normal demeanor nonpressured speech Labs: White blood cell count 6.6, hemoglobin 12.3 hematocrit 35.5% platelets 295 Assessment and plan: 30-year-old G4, P1 at 39 weeks and 6 days arrives for induction of labor at term Admit labor and delivery CEFM GBS negative Rh-: We will assess and treated as needed Routine orders
[2021-03-11] VITALS (28 sets, daily range): BP systolic 86–125; BP diastolic 55–86; PULSE 56–108; RESP 14–16; TEMP 36.6–37.2; O2SAT 91–100
[2021-03-11] MEDS: Lactated Ringers 500 ML 999 ML IV (00:43)
[2021-03-11] MEDS: miSOPROStol 50 MCG TABLET VAGINAL (01:18)
--- NOTE | 2021-03-11 05:18 | NURSING ---
pt has voided x4 since arrival to unit
[2021-03-11] MEDS: Oxytocin 30 units/NS 500 ml 30 UNITS/500 ML IV.SOLN 334 UNITS IV (06:48)
--- NOTE | 2021-03-11 07:24 | EX.PCM.OBRPT ---
Vaginal Delivery Findings Description of Procedure: Normal spontaneous vaginal delivery of a viable female infant, vertex SHASHI. Head and shoulders delivered with ease. Cord cut and clamped. Baby handed off to patient. Placenta delivered via cord traction and fundal massage. Second-degree midline perineal laceration noted and repaired in typical fashion. EBL 300 cc Apgars 8/9
[2021-03-11] MEDS: Ibuprofen 600 MG Tablet PO ×2 (07:33→13:41)
--- NOTE | 2021-03-11 09:15 | NURSING ---
Patient assisted to bathroom by two staff members to attempt to void. Bladder is not distended. Upon entering the bathroom, the patient became pale and lightheaded. Assisted back to bed safely. HOB lowered. Patient given sips of water. Reported feeling better within 5 minutes. Will reattempt voiding at a later time. Patient denies urge to void.
[2021-03-11] MEDS: Acetaminophen 500 MG Tablet 1000 MG PO ×2 (10:28→19:59)
[2021-03-11] MEDS: Benzocaine/Lanolin/Aloe Vera 1 SPRAY EACH TOPICAL (13:23)
[2021-03-11] MEDS: Senna/Docusate Sodium 1 Tablet PO (17:57)
[2021-03-12 00:46] VITALS: TEMP 36.6
[2021-03-12 00:47] VITALS: BP 121/77; PULSE 90; RESP 16; TEMP 36.6
[2021-03-12 04:39] VITALS: BP 115/60; PULSE 77; RESP 16; TEMP 36.3; TEMP 36.8
--- NOTE | 2021-03-12 07:29 | PCM.DC.BLA ---
Discharge Summary Date of Admission: 03/10/21 Date of Discharge: 03/12/21 Summary: Patient arrived on 04/06/2021 for induction of labor at term. Subsequently delivered on 03/11/2021. Routine recovery. Discharge home 03/12/2021. Physical Exam Const alert, oriented x3, no apparent distress, average body habitus, no limitations and healthy appearing Eyes PERRL Neck full ROM GI normal to inspection, nondistended, normoactive bowel sounds Extremity normal to inspection, full ROM, normal capillary refill and no joint enlargement Skin no rashes or lesions noted Psych mental status grossly normal, thought process normal, cooperative, affect normal and speech normal Meaningful Use Info Meaningful Use Diagnoses (Choose all that apply): None applicable Discharge Plan Admission Admit Date/Time: 03/10/21 19:05 Primary Reason for Your Visit: Induction of labor Attending Provider: Ryan Balderrama Primary Care Provider: Suresh Villa Instructions Additional Instructions / Restrictions: Normal activity. Normal diet. Weightbearing as tolerated. Call if fevers, chills, chest pain, shortness of breath. Follow-up 2 weeks telehealth visit, 4 to 6-week visit Discharge Orders/Prescriptions Prescriptions: No Action Vitamin 1 EACH tablet 1 ea PO DAILY RF: 0 ferrous sulfate 325 MG tablet 325 mg PO DAILY 30 Days Qty: 30 RF: 0 ascorbic acid (vitamin C) [Vitamin C] 500 mg Tablet 500 mg PO DAILY RF: 0 aspirin 81 mg Tablet 81 mg PO DAILY RF: 0 zinc Tablet,Chewable 1 tab PO DAILY RF: 0 Referrals / Follow Up: Suresh Villa MD [Primary Care Provider] - Disposition Discharge Orders: Discharge Patient (Routine); Ordered 03/12/21 Ordered By: Dr. Ryan Balderrama
--- NOTE | 2021-03-12 07:31 | PCM.PN.OB ---
Subjective Subjective No overnight complaints. Pain well controlled. Objective Data Objective Data Vital Signs: Vital Signs Temp Pulse Resp BP Pulse Ox 98.3 F 77 16 115/60 98 03/12/21 04:39 03/12/21 04:39 03/12/21 04:39 03/12/21 04:39 03/11/21 15:38 Oxygen Delivery Method Room Air Weight: 160 lb 3.2 oz Body Mass Index (BMI) 25.0 Intake & Output: Intake and Output for Last 24 Hours 03/10/21 03/11/21 03/12/21 23:59 23:59 23:59 Intake Total 1518.33 / 1518.33 Output Total 1200 / 1200 Balance 318.33 / 318.33 Lab / Micro Data Result Diagrams: 03/10/21 19:55 Physical Exam Const alert, oriented x3, no apparent distress, average body habitus, healthy appearing and well nourished HEENT normocephalic and moist oral mucous membranes Head and Scalp: atraumatic Face and Sinus: normal facial exam Neck full ROM Resp normal respiratory effort, no retractions and no use of accessory muscles GI normal to inspection, nondistended, normoactive bowel sounds Extremity normal to inspection, full ROM and no clubbing, cyanosis or edema Psych mental status grossly normal, affect normal, speech normal and activity/motor behavior normal Assessment & Plan (1) (spontaneous vaginal delivery): PLAN: day 1. Breast-feeding. Pain well controlled. Okay to discharge home today
[2021-03-12 07:43] VITALS: TEMP 36.7
[2021-03-12 07:44] VITALS: BP 106/75; PULSE 83; RESP 83; TEMP 36.7; O2SAT 97; O2SAT 98
[2021-03-12] MEDS: Acetaminophen 500 MG Tablet 1000 MG PO (07:49)
[2021-03-12 10:29] VITALS: BP 116/73; PULSE 83
== END 2021-03-12 12:25 | disposition home or self-care (01) | DRG 807 ==
PROVIDERS: Obstetrics & Gynecology; Admitting Provider Obstetrics & Gynecology; PCP Family Medicine; Visit Provider Obstetrics & Gynecology
DX: O70.1 Second degree perineal laceration during delivery (principal); Z37.0 Single live birth; Z3A.39 39 weeks gestation of pregnancy; Z86.16 Personal history of COVID-19; Z90.49 Acquired absence of other specified parts of digestive tract
CPT/HCPCS: 59025; 59050; 85025; 86850; 86900; 86901; 99218; J7120; G0378

== ENCOUNTER → 2021-03-15 20:00 | Outpatient (CLI) | payer OTHER, SELFPAY | PROVIDERS: PCP Family Medicine; Referring Provider Obstetrics & Gynecology; Visit Provider Obstetrics & Gynecology | DX: Z39.1 Encounter for care and examination of lactating mother (principal) | CPT/HCPCS: 96158; 96159 ==

== ENCOUNTER → 2021-03-18 12:05 | Outpatient (CLI) | payer OTHER, SELFPAY | PROVIDERS: PCP Family Medicine; Visit Provider Student in an Organized Health Care Education/Training Program | DX: N39.0 Urinary tract infection, site not specified (principal) | CPT/HCPCS: 87086; 87088; 87186 ==

== ENCOUNTER → 2022-06-30 | Outpatient (CLI) | payer OTHER, SELFPAY ==
[2022-07-04 18:42] LABS: HPV APTIMA, High Risk Negative (Negative)
== END | disposition home or self-care (01) ==
LOC: WOBLAB 16:18
PROVIDERS: PCP Family Medicine; Visit Provider Student in an Organized Health Care Education/Training Program
DX: Z12.4 Encounter for screening for malignant neoplasm of cervix (principal)
CPT/HCPCS: 87624; 88175; G0145

== ENCOUNTER → 2023-02-04 | Outpatient (CLI) | payer OTHER, SELFPAY ==
--- NOTE | 2023-02-04 | EMB_PTH ---
PATIENT: JASBIR SOSA LOC: [facility] U#:[id number] AGE/SX: 32/F ROOM: RE02/04/[address]: Dr. Yesenia Balderrama DO : 1990 BED: DIS: 02/04/2023 SPEC #: [id number] RECD: 02/04/23 14:14 STATUS: WILL REDeja #: [id number] BELINDA: 02/04/23 00:[address]: Yesenia Balderrama DEPT: SURGICAL PATHOLOGY RECD BY: Dallas Patel ENTERED: 02/05/23 09:28 SP TYPE: ENDOM BX/C ÓSCAR DR: Dr. Suresh Sosa MD Tissues: Endometrium, NOS Procedures: Surgery Specimen Level IV HEADER OPERATION: Endometrial biopsy PRE-OP DIAGNOSIS: N92.6 TISSUE SUBMITTED: Endometrial biopsy MICROSCOPIC DIAGNOSIS Endometrium, biopsy: Transition endometrium. AM:dawna 02/06/2023 MICROSCOPIC DESCRIPTION Slides are reviewed. GROSS DESCRIPTION Received in fixative is one container labeled with the patient's name and designated endometrial biopsy. The specimen consists of multiple irregular fragments of capellan-pink soft tissue that in aggregate measure 2.0 x 1.0 x 0.2 cm. The specimen is totally submitted in one cassette. / SJ:rg 02/05/2023 TC:5 CPT: 46303
[2023-02-04 17:27] LABS: Hematocrit 44.9 % (37-47); Hemoglobin 14.4 g/dL (12.0-15.0); Mean Corp Hgb Conc 32.1 g/dL (32-36); Mean Corpuscular Hgb 30.1 pg (27.0-32.0); Mean Corpuscular Volume 93.7 fL (81-99); Mean Platelet Vol. 10.1 fl (6.2-12.0); Platelet Count 238 K/mm3 (150-450); RBC Distribution Width CV 12.9 % (11.6-14.6); RBC Distribution Width SD 44.3 fl (35.1-43.9); Red Blood Count 4.79 M/mm3 (4.2-5.4); White Blood Count 4.8 K/mm3 (4.4-11.0)
[2023-02-04 18:11] LABS: Progesterone Level 6.72 ng/mL (See Comment)
[2023-02-04 18:27] LABS: Estradiol 57.7 pg/mL; Follicle Stimulating Hormone 4.4 mIU/mL; Luteinizing Hormone 7.7 mIU/mL; Prolactin 6.5 ng/mL; T4 Free Direct 1.03 ng/dL (0.76-1.46); Thyroid Stim Hormone (TSH) 1.07 uIU/mL (0.358-3.74)
== END | disposition home or self-care (01) ==
PROVIDERS: PCP Family Medicine; Visit Provider Student in an Organized Health Care Education/Training Program
DX: N92.6 Irregular menstruation, unspecified (principal)
CPT/HCPCS: 36415; 82670; 83001; 83002; 84144; 84146; 84439; 84443; 85027; 88305